=== PATIENT | male | born 1955 | race Caucasian/White ===

== ENCOUNTER 2019-03-09 09:46 | Day surgery (SDC) | payer MEDICARE, OTHER, MEDICAID ==
[~2019-03-09 09:46] MED LIST: BUPIVACAINE HCL 0.5 % INJ/PF 30 ML SDV ONE; CEFAZOLIN SODIUM 2 GM in DEXTROSE 5%-WATER 100 ML IV PRN; DEXAMETHASONE SOD PHOSPHATE INJ 4 MG/1 ML VIAL ONE; FENTANYL CITRATE INJ/PF 100 MCG/2 ML AMPUL ONE; LIDOCAINE 0.5% INJ-PF (5 MG/ML) 50 ML SDV ONE; MIDAZOLAM 2 MG/2 ML INJ ONE; ONDANSETRON HCL INJ/PF 4 MG/2 ML SDV ONE; PROPOFOL INJ 200 MG/20 ML VIAL IV ONE
--- NOTE | 2019-03-09 10:51 | RADIOLOGY REPORT (SQ) ---
EXAM DESCRIPTION: CHEST SINGLE VIEW COMPLETED DATE/TIME: 03/09/2019 10:25 am REASON FOR STUDY: PRE-OP COMPARISON: Chest films 03/21/2015, 12/20/2014 EXAM PARAMETERS: NUMBER OF VIEWS: One view. TECHNIQUE: Single frontal radiographic view of the chest acquired. RADIATION DOSE: NA LIMITATIONS: None. FINDINGS: LUNGS AND PLEURA: No acute infiltrates or pleural effusions. No pneumothorax. MEDIASTINUM AND HILAR STRUCTURES: No masses. Contour normal. HEART AND VASCULAR STRUCTURES: Heart normal in size. Normal vasculature. BONES: No acute findings HARDWARE: Right Shoulder orthopedic prosthesis OTHER: No other significant finding. IMPRESSION: NO ACUTE RADIOGRAPHIC FINDING IN THE CHEST. TECHNICAL DOCUMENTATION: JOB ID: [id number] [employer]- All Rights Reserved Reading location - IP/workstation name: [email or web address]
[2019-03-09 10:58] LABS: ABSOLUTE BASOPHILS # (AUTO) 0.1 10^3/uL (0.0-0.2); ABSOLUTE EOSINOPHILS # (AUTO) 0.1 10^3/uL (0.0-0.6); ABSOLUTE LYMPHOCYTES (AUTO) 1.6 10^3/uL (0.5-4.7); ABSOLUTE MONOCYTES (AUTO) 0.4 10^3/uL (0.1-1.4); ABSOLUTE NEUT (AUTO) 2.2 10^3/uL (1.7-8.2); BASOPHILS % (AUTO) 1.2 % (0-2); EOSINOPHILS % (AUTO) 1.7 % (0-6); HEMATOCRIT 39.1 % (37.9-51.0); HEMOGLOBIN 13.6 g/dL (13.5-17.0); LYMPHOCYTES % (AUTO) 36.7 % (13-45); MEAN CORPUSCULAR HEMOGLOBIN 33.1 pg (27.0-33.4); MEAN CORPUSCULAR HGB CONC 34.6 g/dL (32.0-36.0); MEAN CORPUSCULAR VOLUME 96 fl (80-97); PLATELET COUNT 183 10^3/uL (150-450); RED CELL DISTRIBUTION WIDTH 14.2 % (11.5-14.0); SEGMENTED NEUTROPHILS % (AUTO) 51.4 % (42-78); TOTAL CELLS COUNTED % (AUTO) 100 %; WHITE BLOOD COUNT 4.3 10^3/uL (4.0-10.5)
[2019-03-09 11:20] LABS: ANION GAP 6 (5-19); BLOOD UREA NITROGEN 15 mg/dL (7-20); CALCIUM 9.1 mg/dL (8.4-10.2); CARBON DIOXIDE 31 mmol/L (22-30); CHLORIDE 103 mmol/L (98-107); GLUCOSE 94 mg/dL (75-110); POTASSIUM 4.4 mmol/L (3.6-5.0)
--- NOTE | 2019-03-09 12:12 | RADIOLOGY REPORT (SQ) ---
EXAM DESCRIPTION: CERV SP 3 VIEW OR LESS COMPLETED DATE/TIME: 03/09/2019 11:47 am REASON FOR STUDY: PRE-OP S52.225A NONDISPLACED TRANSVERSE FRACTURE OF SHAFT OF LEFT U M19.232 SECO NDARY OSTEOARTHRITIS, LEFT WRIST COMPARISON: None. EXAM PARAMETERS: NUMBER OF VIEWS: Three views TECHNIQUE: AP, lateral and odontoid radiographic images acquired of the cervical spine. RADIATION DOSE: N/A LIMITATIONS: None. FINDINGS: MINERALIZATION: Normal. SEGMENTATION: Normal. ALIGNMENT: Normal. VERTEBRAE: Maintained height. No fracture or worrisome bone lesion. DISCS: Multilevel disc space narrowing with osteophytes. POSTERIOR ELEMENTS: Pedicles and facets are intact. No posterior arch defects. Facet arthropathy is present. HARDWARE: None in the spine. PARASPINAL SOFT TISSUES: Normal. OTHER: No other significant finding. IMPRESSION: SPONDYLOSIS WITHOUT BONE LESION OR FRACTURE. TECHNICAL DOCUMENTATION: JOB ID: [id number] [employer]- All Rights Reserved Reading location - IP/workstation name: [email or web address]
--- NOTE | 2019-03-09 13:03 | RADIOLOGY REPORT (SQ) ---
EXAM DESCRIPTION: CERV SP 3 VIEW OR LESS COMPLETED DATE/TIME: 03/09/2019 12:51 pm REASON FOR STUDY: R/O [facility] INSTABILITY, FLEXION, EXT ONLY S52.225A NONDISPLACED TRANSV ERSE FRACTURE OF SHAFT OF LEFT U M19.232 SECONDARY OSTEOARTHRITIS, LEFT WRIST COMPARISON: Cervical spine three views earlier today NUMBER OF VIEWS: Lateral flexion lateral extension films TECHNIQUE: Lateral flexion, lateral extension cervical spine radiographic images . LIMITATIONS: None. FINDINGS: On the lateral view, the cervical spine is seen down to the C7-T1 level. There is high-gr michael disc space loss of height and bulky anterior osteophyte formation at C2-3, C3-4, C4-5, C5-6. No instability on flexion/extension imaging. Results called to Carie in ambulatory surgery. IMPRESSION: No instability on flexion/extension views, cervical spine TECHNICAL DOCUMENTATION: JOB ID: [id number] [employer]- All Rights Reserved Reading location - IP/workstation name: [email or web address]
[2019-03-09] MEDS ORDERED: SUCCINYLCHOLINE CHLORIDE INJ 200 MG/10 ML VIAL ONE (14:17)
[2019-03-09] MEDS ORDERED: MORPHINE SULFATE 10 MG/ML INJ IV PRN ×2 (14:54→16:02)
[2019-03-09] MEDS ORDERED: DIPHENHYDRAMINE HCL 50 MG/ML VIAL IV PRN (14:54)
[2019-03-09] MEDS ORDERED: FENTANYL CITRATE INJ/PF 100 MCG/2 ML AMPUL IV PRN ×3 (14:54)
[2019-03-09] MEDS ORDERED: ONDANSETRON HCL INJ/PF 4 MG/2 ML SDV IV PRN ×2 (14:54→16:02)
[2019-03-09] MEDS ORDERED: PROMETHAZINE HCL INJ 25 MG/1 ML VIAL IV PRN ×2 (14:54)
[2019-03-09] MEDS ORDERED: MEPERIDINE HCL/PF INJ 25 MG/1 ML DISP.SYRIN IV PRN (14:54)
[2019-03-09] MEDS: OXYCODONE-ACETAMINOPHEN 5-325 MG TABLET PO PRN ×2 (15:35→17:35)
--- NOTE | 2019-03-09 16:04 | Discharge Summary ---
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 Terry Menendez @ [facility] for [facility] to be seen in 10-14 days or as scheduled [place]: Sabael: Tinnie: Ice and elevate Keep splint clean/dry/intact, do not remove. If your fingers become numb please unwrap the Gregg wrap but leave the splint in place, if the sensation does not return within 30 minutes please return to the emergency department. May begin finger range of motion attempting to make full fist. ORAL NARCOTIC MEDICATION: You have been given a prescription for pain control. This medication is a narcotic. It's best taken with food, as nausea can result if taken on an empty stomach. Don't operate machinery or drive within six hours of taking this medication. Do not combine this medicine with alcohol, or with any medication which can cause sedation (such as cold tablets or sleeping pills) unless you get permission from the physician. Narcotics tend to cause constipation. If possible, drink plenty of fluids and eat a diet high in fiber and fruits. Please be aware that prescription narcotics also have the potential for abuse. People become addicted to these medications because of the general sense of wellbeing that they induce. This feeling along with a significant reduction in tension, anxiety, and aggression provides a stimulating seductive quality to these drugs. Once your pain is under control, we encourage you to discard your unused narcotics. Prescriptions: Hydrocodone/Acetaminophen [[place]way 5-325 mg Tablet] 1 tab PO Q6 PRN #20 tablet PRN Reason: Referrals: TERRY MENENDEZ DO [ACTIVE STAFF] - Discharge Diet: As Tolerated Respiratory Treatments at Home: Deep Breathing/Coughing Discharge Activity: No Lifting Over 10 Pounds, No Lifting/Push/Pulling Report the Following to Your Physician Immediately: Fever over 101 Degrees, Unusual Bleeding, Redness, Swelling, Warmth
--- NOTE | 2019-03-09 16:07 | Operative Report ---
Operative Report DATE OF SURGERY: 03/09/19 PREOPERATIVE DIAGNOSIS: Left ulnar shaft nonunion POSTOPERATIVE DIAGNOSIS: Same OPERATION: Open reduction internal fixation left ulnar shaft nonunion via compressive technique SURGEON: MAYELA MENENDEZ ANESTHESIA: GA COMPLICATIONS: None ESTIMATED BLOOD LOSS: Minimal PROCEDURE: Indication for above procedure: 64-year-old male who sustained an injury to his left wrist x-rays demonstrate ulnar shaft fracture patient was treated conservatively given the nondisplaced nature however after immobilization and patient's failure to comply due to mental status. Radiographs continue to demonstrate nonunion and patient continued to have persistent pain at that point decision was made to proceed with operative intervention which include open reduction internal rotation ulnar shaft nonunion. Procedure In Detail: Patient was seen and evaluated in the preoperative holding area. The left upper extremity was initialized and marked. Patient received 2g of Ancef IV for bacterial prophylaxis. Patient was taken back to the operative room where transferred to the operative table and placed under general anesthesia. Once they were adequately anesthetized a nonsterile tourniquet was placed on the upper extremity. A surgical team debriefing was performed ensuring all instrumentation was available, the surgical procedure was discussed with possible concerns reviewed. The upper extremity was prepped with chlorhexidine and alcohol and draped in a sterile fashion. A timeout was done identifying correct patient, procedure and extremity everyone in attendance agree with this and verbalized no concerns. The extremity was exsanguinated the tourniquet was inflated to 250 mmHg. Longitudinal skin incision was made over the ulnar shaft fracture. Blunt dissection was performed. Dorsal ulnar sensory nerve was identified and retracted. Interval between the FCU and ECU was established to expose the fracture site. Superior periosteal dissection was performed proximally and distally the edges of the fracture site were debrided including intervening hematoma. There was minimal evidence of fracture healing. A curette was placed proximally and distally cleaning the canal. Once adequately debrided fracture edges were then reduced and a 2.3 mm interfragmentary screw was placed providing interfragmentary compression and provisional fixation. Decision was then made to place a 3.5 mm narrow compression plate. First was secured distally with bicortical fixation and a locking screw. Under co mpression technique 2 compression screws were placed proximally providing interfragmentary compression. Fixation was then completed proximally with the appropriate size locking screw. At completion there was no evidence of fracture instability and near anatomic reduction. No evidence of soft tissue impingement. C-arm fluoroscopy was obtained confirming reduction of the fracture and appropriate placement of hardware. Wound was then copiously irrigated with normal saline. ECU/FCU was then reapproximated with 2-0 Vicryl suture. Subcutaneous tissues closed with interrupted 4-0 Monocryl suture skin was closed with running subcuticular 4-0 Monocryl reinforced with Dermabond and Steri-Strips. 20 cc of 0.5% bupivacaine without epinephrine was injected for postoperative pain control. Patient was placed in a sugar tong splint with the forearm in neutral position. Sponge counts, instrument counts, needle counts were correct. Patient was then awoken from anesthesia. Transferred from the operating room table to the operating room stretcher. There was no intraoperative complications patient tolerated procedure well stable to PACU. Postop plan: Patient will follow in the office in 2 weeks at which point we will obtain radiographs. Patient will be placed in a long-arm cast at that time.
[2019-03-09] MEDS ORDERED: ACETAMINOPHEN 1,000 MG/100 ML RTUPB IV ONE (16:39)
[2019-03-09] MEDS ORDERED: KETOROLAC TROMETHAMINE INJ/PF 30 MG/1 ML SDV ONE (16:39)
[2019-03-09] MEDS ORDERED: OXYCODONE-ACETAMINOPHEN 5-325 MG TABLET ONE (17:35)
[2019-03-09 18:50] VITALS: BP 92/61
--- NOTE | 2019-03-09 23:07 | EKG REPORT ---
SEVERITY:- NORMAL ECG - SINUS RHYTHM : Confirmed by: Charissa Bains 09-Mar-2019 23:06:27
--- NOTE | 2019-03-10 08:22 | RADIOLOGY REPORT (SQ) ---
EXAM DESCRIPTION: WRIST LEFT 2 VIEWS; NO CHG FLUORO COMPLETED DATE/TIME: 03/09/2019 8:12 pm REASON FOR STUDY: ORIF LT WRIST S52.225A NONDISPLACED TRANSVERSE FRACTURE OF SHAFT OF LEFT U M19.23 2 SECONDARY OSTEOARTHRITIS, LEFT WRIST COMPARISON: None. FLUOROSCOPY TIME: 21 seconds Spot images saved to PACS. TECHNIQUE: Intra-operative images acquired during surgical procedure to evaluate progress. NUMBER OF IMAGES: 4 LIMITATIONS: None. FINDINGS: Fluoroscopy was provided for intraoperative procedure. Please refer to the operative repo rt further discussion. IMPRESSION: IMAGE(S) OBTAINED DURING PROCEDURE. COMMENT: Quality ID [id number]: Final reports for procedures using fluoroscopy that document radiation exp osure indices, or exposure time and number of fluorographic images (if radiation exposure indices are not available) Please consult full operative report of the attending physician for description of the procedure. TECHNICAL DOCUMENTATION: JOB ID: [id number] [employer]- All Rights Reserved Reading location - IP/workstation name: [email or web address]
--- NOTE | 2019-03-10 08:22 | RADIOLOGY REPORT (SQ) ---
EXAM DESCRIPTION: WRIST LEFT 2 VIEWS; NO CHG FLUORO COMPLETED DATE/TIME: 03/09/2019 8:12 pm REASON FOR STUDY: ORIF LT WRIST S52.225A NONDISPLACED TRANSVERSE FRACTURE OF SHAFT OF LEFT U M19.23 2 SECONDARY OSTEOARTHRITIS, LEFT WRIST COMPARISON: None. FLUOROSCOPY TIME: 21 seconds Spot images saved to PACS. TECHNIQUE: Intra-operative images acquired during surgical procedure to evaluate progress. NUMBER OF IMAGES: 4 LIMITATIONS: None. FINDINGS: Fluoroscopy was provided for intraoperative procedure. Please refer to the operative repo rt further discussion. IMPRESSION: IMAGE(S) OBTAINED DURING PROCEDURE. COMMENT: Quality ID [id number]: Final reports for procedures using fluoroscopy that document radiation exp osure indices, or exposure time and number of fluorographic images (if radiation exposure indices are not available) Please consult full operative report of the attending physician for description of the procedure. TECHNICAL DOCUMENTATION: JOB ID: [id number] [employer]- All Rights Reserved Reading location - IP/workstation name: [email or web address]
== END 2019-03-09 18:45 | disposition home or self-care (01) ==
LOC: OROUT 09:46
PROVIDERS: ATTEND Orthopaedic Surgery
DX: S52.225A Nondisplaced transverse fracture of shaft of left ulna, initial encounter for closed fracture (principal); X58.XXXA Exposure to other specified factors, initial encounter; M19.232 Secondary osteoarthritis, left wrist; E78.00 Pure hypercholesterolemia, unspecified; K21.9 Gastro-esophageal reflux disease without esophagitis; I10 Essential (primary) hypertension; Z79.82 Long term (current) use of aspirin; Z79.899 Other long term (current) drug therapy
CPT/HCPCS: 36415; 85025; 80048; 72040; 71045; 73100; 93005; 93010; 01830; 25400; C1713 ×4; J2250; J3490; J0690; J1100; J3010; J1885; A9270; J0330; J2405; J7060; J2704; J0131

== ENCOUNTER 2020-05-31 08:21 | Inpatient (IN) | payer MEDICARE, MEDICAID ==
[2020-05-31 08:59] LABS: ABSOLUTE BASOPHILS # (AUTO) 0.1 10^3/uL (0.0-0.2); ABSOLUTE EOSINOPHILS # (AUTO) 0.1 10^3/uL (0.0-0.6); ABSOLUTE LYMPHOCYTES (AUTO) 1.3 10^3/uL (0.5-4.7); ABSOLUTE MONOCYTES (AUTO) 0.4 10^3/uL (0.1-1.4); ABSOLUTE NEUT (AUTO) 2.5 10^3/uL (1.7-8.2); BASOPHILS % (AUTO) 1.4 % (0-2); EOSINOPHILS % (AUTO) 2.5 % (0-6); HEMATOCRIT 35.6 % (37.9-51.0); HEMOGLOBIN 12.6 g/dL (13.5-17.0); LYMPHOCYTES % (AUTO) 30.4 % (13-45); MEAN CORPUSCULAR HGB CONC 35.2 g/dL (32.0-36.0); MEAN CORPUSCULAR VOLUME 96 fl (80-97); MONOCYTES % (AUTO) 9.9 % (3-13); PLATELET COUNT 158 10^3/uL (150-450); RED CELL DISTRIBUTION WIDTH 14.2 % (11.5-14.0); SEGMENTED NEUTROPHILS % (AUTO) 55.8 % (42-78); TOTAL CELLS COUNTED % (AUTO) 100 %; WHITE BLOOD COUNT 4.4 10^3/uL (4.0-10.5)
[2020-05-31 09:21] LABS: ALBUMIN 3.3 g/dL (3.5-5.0); ALKALINE PHOSPHATASE 74 U/L (38-126); ANION GAP 6 (5-19); ASPARTATE AMINO TRANSFERASE 29 U/L (17-59); BILIRUBIN,DIRECT 0.2 mg/dL (0.0-0.4); BILIRUBIN,TOTAL 0.7 mg/dL (0.2-1.3); BLOOD UREA NITROGEN 21 mg/dL (7-20); CALCIUM 8.8 mg/dL (8.4-10.2); CARBON DIOXIDE 30 mmol/L (22-30); CHLORIDE 103 mmol/L (98-107); CREATINE KINASE 73 U/L (55-170); GLUCOSE 117 mg/dL (75-110); POTASSIUM 4.5 mmol/L (3.6-5.0); TOTAL PROTEIN 6.1 g/dL (6.3-8.2)
[2020-05-31 09:27] LABS: CREATINE KINASE MB 0.71 ng/mL (<4.55)
[2020-05-31 09:34] LABS: TROPONIN I 0.07 ng/mL
[2020-05-31] MEDS ORDERED: NORMAL SALINE 1000 ML 1,000 ML IV ONE (10:10)
--- NOTE | 2020-05-31 10:16 | ER Document Report ---
ED General - General Chief Complaint: Near Syncope Stated Complaint: POSSIBLE SYNCOPE Time Seen by Provider: 05/31/20 09:52 Primary Care Provider: JOSE TOMLINSON MD [Primary Care Provider] - Follow up as needed TRAVEL OUTSIDE OF THE [place] IN LAST 30 DAYS: No - HPI Notes: Chief complaint: Near syncope History of present illness: 65-year-old mentally retarded male living with sister brought in for evaluation of near syncopal episode. Patient reports she was giving him a haircut in the kitchen this morning when he suddenly seemed to become very dizzy and lose his balance. He was falling out of the chair and she braced him in gently slid against the wall down to the floor. He never completely passed out. He continued to speak to her but told her that he felt very dizzy. She did not observe any focal weakness or any tonic-clonic movem ents. There was no incontinence of bowel or bladder. EMS was called and he had a blood pressure in the 80s and a heart rate in the 40s. They gave 1 dose of atropine IV and also 500 cc of normal saline. His blood pressure stabilized and his symptoms resolved. He was transported the hospital. He states he feels well at this time with no ongoing symptoms. Sister notes that he has recently been having difficulty swallowing and seems to get choked on his foods and intermittently has a rattling cough. She also says that he is taking very small bites of food and that she is talked with his the orthopedic specialty hospital doctor about this and they are planning to obtain an endoscopy on an outpatient basis although this has not yet been done. Currently followed by Dr. Jose Tomlinson. Patient has no known allergies. He has a known chronic sinus bradycardia. Chronic medications include: Sertraline Docusate Famotidine Meloxicam Benzapril Simvastatin Pantoprazole - Related Data Allergies/Adverse Reactions: ibuprofen Adverse Reaction (Intermediate, Verified 03/09/19 10:18) GI upset Home Medications: Sertraline, Docusate, Famotidine, Meloxicam, Benazepril, Simvastatin, Pantaprazole Past Medical History - General Information source: Patient, Relative, [facility] Records - Social History Smoking Status: Never Smoker Frequency of alcohol use: None Drug Abuse: None Family History: Reviewed & Not Pertinent - Past Medical History Cardiac Medical History: Reports: Hx Hypercholesterolemia - meds x 6 years, Hx Hypertension - meds x 6 years, Hx Heart Murmur - no SBE prophylaxis recommended on echo report Denies: Hx Atrial Fibrillation, Hx Congestive Heart Failure, Hx Coronary Artery Disease, Hx Heart Attack, Hx Peripheral Vascular Disease Pulmonary Medical History: Denies: Hx Asthma, Hx Bronchitis, Hx COPD, Hx Pneumonia Neurological Medical History: Denies: Hx Cerebrovascular Accident, Hx Seizures, Hx Parkinson's Disease Endocrine Medical History: Denies: Hx Diabetes Mellitus Type 1, Hx Diabetes Mellitus Type 2 Malignancy Medical History: Denies Hx Leukemia GI Medical History: Reports: Hx Gastroesophageal Reflux Disease - meds x 10 years. Denies: Hx Crohn's Disease, Hx Hiatal Hernia, Hx Irritable Bowel, Hx Liver Failure, Hx Pancreatitis, Hx Ulcer Musculoskeletal Medical History: Reports Hx Arthritis, Denies Hx Fibromyalgia, Denies Hx Multiple Sclerosis, Denies Hx Muscular Dystrophy Psychiatric Medical History: Reports: Hx Depression - meds x 6 years Denies: Hx Bipolar Disorder, Hx Dementia, Hx Post Traumatic Stress Disorder, Hx Schizophrenia Traumatic Medical History: Denies: Hx Fractures Infectious Medical History: Denies: Hx HIV Past Surgical History: Reports: Hx Orthopedic Surgery. Denies: Hx Appendectomy, Hx Bowel Surgery, Hx Cholecystectomy, Hx Colostomy, Hx Coronary Artery Bypass Graft, Hx Gastric Bypass Surgery, Hx Herniorrhaphy, Hx Pacemaker, Hx Tonsillectomy - Immunizations Hx Diphtheria, Pertussis, Tetanus Vaccination: Yes Hx Pneumococcal Vaccination: 07/07/12 Review of Systems - Review of Systems Notes: Constitutional: Negative for fever. HENT: Negative for sore throat. Eyes: Negative for visual changes. Cardiovascular: Negative for chest pain. Respiratory: Negative for shortness of breath. Gastrointestinal: As per HPI. Genitourinary: Negative for dysuria. Musculoskeletal: Negative for back pain. Skin: Negative for rash. Neurological: As per HPI. 10 point ROS negative except as marked above and in HPI. Physical Exam - Vital signs Vitals: Resp Pulse Ox 12 93 05/31/20 08:31 05/31/20 08:31 - Notes Notes: GENERAL: Male patient approximately stated age appearing in no acute distress SKIN: Pale with slightly decreased turgor. No rashes. HEAD: Normocephalic atraumatic. EYES: PERRLA. EOMI. Conjunctivae and sclerae clear. EARS: CANALS AND TMS CLEAR. NOSE: CLEAR. MOUTH: Tacky oral mucosa. Good dentition. No stridor or edema. No drooling. NECK: Supple. No masses or thyromegaly. No adenopathy. Carotids 2+ without bruits. No JVD. BACK: Symmetrical without tenderness. CHEST: Respirations unlabored. Breath sounds clear and symmetrical. HEART: Bradycardic regular rhythm. No murmur gallop or rub. ABDOMEN: Soft nontender without masses, organomegaly or rebound. Bowel sounds normally active. No bruits. GENITALIA: Deferred. EXTREMITIES: Prominent degenerative changes of interphalangeal joints of both h ands. No edema. No calf tenderness. Cap refill less than 1.5 seconds. Dorsalis pedis and posterior tibial pulses 3+ and symmetrical. NEUROLOGICAL: GCS 15. Alert and oriented x3. Normal gait. Fluent speech. Cranial nerves II through XII intact. Sensorimotor and cerebellar normal. Normal tone. PSYCHIATRIC: Flat affect. Course - Re-evaluation Re-evalutation: 05/31/20 13:36 After an extensive work-up in ED it is still not totally clear what caused this man's episode today. May very well be simple vasovagal event which occurred while he was getting his haircut. Cannot exclude possibility of TIA or an atypical seizure. His head CT showed microvascular changes only. His neurologic exam is nonfocal. His labs are essentially unremarkable here except for mildly elevated D-dimer. We did do a CTA of the chest and this was negative for PE. Findings are reviewed with family member. We agreed that he will be placed in observation status by the hospitalist service. Patient was presented to Dr. Hough who will admit - Vital Signs Vital signs: Temp Pulse Resp BP Pulse Ox 97.7 F 64 17 100/66 96 05/31/20 08:40 05/31/20 08:40 05/31/20 09:08 05/31/20 09:08 05/31/20 09:08 - Laboratory Result Diagrams: 05/31/20 08:29 05/31/20 08:29 Laboratory results interpreted by me: 05/31/20 05/31/20 05/31/20 08:29 08:29 08:29 RBC 3.70 L Hgb 12.6 L Hct 35.6 L MCH 34.0 H RDW 14.2 H D-Dimer 1.14 H BUN 21 H Glucose 117 H Total Protein 6.1 L Albumin 3.3 L - Diagnostic Test Radiology reviewed: Image reviewed, Reports reviewed Radiology results interpreted by me: 05/31/20 11:01 Chest X-Ray 05/31/20 10:09 IMPRESSION: No evidence of acute intrathoracic process. Head CT 05/31/20 10:09 IMPRESSION: CHRONIC CHANGES OF ATROPHY AND MICROVASCULAR ISCHEMIA. NO EVIDENCE OF ACUTE INTRACRANIAL PROCESS. EVIDENCE OF ACUTE STROKE: NO. - EKG Interpretation by Me When compared to previous EKG there are: Other Additional EKG results interpreted by me: 05/31/20 10:20 Twelve-lead EKG reviewed by me contemporaneously: 0904 hrs. Indication for study: Near syncope Rhythm: Sinus bradycardia Rate: 59 Intervals: Normal QRS axis: Normal +[address]/T wave changes: None Comparison with prior tracing: Unchanged from prior study 03/19/2019 Interpretation: Sinus bradycardia Discharge - Discharge Clinical Impression: Syncope and collapse Condition: Good Disposition: ADMITTED OBSERVATION Admitting Provider: - Dr. Hough Unit Admitted: Telemetry Referrals: JOSE TOMLINSON MD [Primary Care Provider] - Follow up as needed
--- NOTE | 2020-05-31 10:40 | RADIOLOGY REPORT (SQ) ---
EXAM DESCRIPTION: CHEST SINGLE VIEW IMAGES COMPLETED DATE/TIME: 05/31/2020 10:26 am REASON FOR STUDY: dysphagia COMPARISON: 03/09/2019 EXAM PARAMETERS: NUMBER OF VIEWS: One view. TECHNIQUE: Single frontal radiographic view of the chest acquired. RADIATION DOSE: NA LIMITATIONS: None. FINDINGS: LUNGS AND PLEURA: No opacities, masses or pneumothorax. No pleural effusion. MEDIASTINUM AND HILAR STRUCTURES: No masses. Contour normal. HEART AND VASCULAR STRUCTURES: Heart normal in size. Normal vasculature. BONES: No acute findings. HARDWARE: None in the chest. Partially visualized right shoulder arthroplasty hardware OTHER: Possible small hiatal hernia. IMPRESSION: No evidence of acute intrathoracic process. TECHNICAL DOCUMENTATION: JOB ID: [id number] 2010 [employer]- All Rights Reserved Reading location - IP/workstation name: [email or web address]
--- NOTE | 2020-05-31 10:42 | RADIOLOGY REPORT (SQ) ---
EXAM DESCRIPTION: CT HEAD WITHOUT IMAGES COMPLETED DATE/TIME: 05/31/2020 10:26 am REASON FOR STUDY: syncope COMPARISON: None. TECHNIQUE: Axial images acquired through the brain without intravenous contrast. Images reviewed wi th bone, brain and subdural windows. Additional sagittal and coronal reconstructions were generated. Images stored on PACS. All CT scanners at this facility use dose modulation, iterative reconstruction, and/or weight based d osing when appropriate to reduce radiation dose to as low as reasonably achievable (ALARA). [facility]: Dose Right [facility]: CareDose [facility]: Dose Right [facility]: Teradose 4D [facility]: TaoTaoSou RADIATION DOSE: CT Rad equipment meets quality standard of care and radiation dose reduction techniq ues were employed. CTDIvol: 53.2 mGy. DLP: 1097 mGy-cm.mGy. LIMITATIONS: None. FINDINGS: VENTRICLES: Prominent. CEREBRUM: No masses. No hemorrhage. No midline shift. Areas of low density in the white matter mos t likely due to chronic micro-vascular ischemic change. No evidence for acute infarction. CEREBELLUM: No masses. No hemorrhage. No alteration of density. No evidence for acute infarction. EXTRAAXIAL SPACES: Age-related involutional change. No fluid collections. No masses. ORBITS AND GLOBE: No intra- or extraconal masses. Normal contour of globe without masses. CALVARIUM: No fracture. PARANASAL SINUSES: Minimal mucosal thickening within the ethmoid air cells and inferior left maxillar y sinus. Remaining sinuses are clear. SOFT TISSUES: No mass or hematoma. OTHER: No other significant finding. IMPRESSION: CHRONIC CHANGES OF ATROPHY AND MICROVASCULAR ISCHEMIA. NO EVIDENCE OF ACUTE INTRACRANIA L PROCESS. EVIDENCE OF ACUTE STROKE: NO. TECHNICAL DOCUMENTATION: JOB ID: [id number] Quality ID # [id number]: Final reports with documentation of one or more dose reduction techniques (e.g., Au tomated exposure control, adjustment of the mA and/or kV according to patient size, use of iterative reconstruction technique) 2010 [employer]- All Rights Reserved Reading location - IP/workstation name: [email or web address]
--- NOTE | 2020-05-31 12:28 | RADIOLOGY REPORT (SQ) ---
EXAM DESCRIPTION: CTA CHEST IMAGES COMPLETED DATE/TIME: 05/31/2020 12:16 pm REASON FOR STUDY: syncope, elevated d-dimer COMPARISON: Same day radiograph TECHNIQUE: CT scan of the chest performed using helical scanning technique with dynamic intravenous contrast injection. Images reviewed with lung, soft tissue and bone windows. Reconstructed coronal and sagittal MPR images reviewed. Additional 3 dimensional post-processing performed to develop Maximal Intensity Projection images (GA P). All images stored on PACS. All CT scanners at this facility use dose modulation, iterative reconstruction, and/or weight based d osing when appropriate to reduce radiation dose to as low as reasonably achievable (ALARA). [facility]: Dose Right [facility]: CareDose [facility]: Dose Right [facility]: Teradose 4D [facility]: Neuralitic Systems CONTRAST TYPE AND DOSE: contrast/concentration: Isovue mmol/ml; Total Contrast Delivered: 112.0 ml; Total Saline Delivered: 120.7 ml Contrast bolus adequate for pulmonary arteries and aorta. RENAL FUNCTION: Creatinine 1.12 RADIATION DOSE: CT Rad equipment meets quality standard of care and radiation dose reduction techniq ues were employed. CTDIvol: 14.3 - 33.1 mGy. DLP: 582 mGy-cm. . LIMITATIONS: None. FINDINGS: LUNGS AND PLEURA: Minimal dependent hypoventilatory change. No focal consolidation, pleur al effusion or pneumothorax. No discrete suspicious nodules or masses. AORTA AND GREAT VESSELS: No aneurysm. No dissection. Visualize great vessels are widely patent. HEART: Normal heart size. No pericardial effusion. No significant calcified coronary atherosclerosis . PULMONARY ARTERIES: No emboli visualized in the main pulmonary arteries or the segmental branches. HILAR AND MEDIASTINAL STRUCTURES: No identified masses or abnormal nodes. HARDWARE: Partially visualize right shoulder arthroplasty. UPPER ABDOMEN: No significant findings. Limited exam. THYROID AND OTHER SOFT TISSUES: No masses. No adenopathy. BONES: No acute bony abnormality. No suspicious osseous lesions. Mild spondylosis greatest at T9-10 . 3D MIPS: Confirm above findings. OTHER: No other significant finding. IMPRESSION: No evidence of pulmonary embolus or other acute intrathoracic findings. COMMENT: Quality ID # [id number]: Final reports with documentation of one or more dose reduction techniques (e.g., Automated exposure control, adjustment of the mA and/or kV according to patient size, use of iterative reconstruction technique) TECHNICAL DOCUMENTATION: JOB ID: [id number] [employer]- All Rights Reserved Reading location - IP/workstation name: [email or web address]
--- NOTE | 2020-05-31 12:33 | EKG REPORT ---
SEVERITY:- NORMAL ECG - SINUS RHYTHM : Confirmed by: Donnell Gonzalez MD 31-May-2020 12:33:00
[2020-05-31 13:12] LABS: APPEARANCE,URINE CLEAR; BILIRUBIN,URINE NEGATIVE (NEGATIVE); COLOR,URINE YELLOW; GLUCOSE, URINE NEGATIVE (NEGATIVE); KETONES,URINE NEGATIVE (NEGATIVE); LEUKOCYTE ESTERASE,URINE NEGATIVE (NEGATIVE); NITRITE,URINE NEGATIVE (NEGATIVE); PROTEIN,URINE NEGATIVE (NEGATIVE); URINE SPECIFIC GRAVITY 1.014; UROBILINOGEN,URINE NEGATIVE mg/dL (<2.0)
[2020-05-31] MEDS ORDERED: NORMAL SALINE 1000 ML 1,000 ML IV PRN (14:47)
[2020-05-31] MEDS ORDERED: ONDANSETRON 4 MG TAB.RAPDIS PO PRN (14:47)
[2020-05-31] MEDS ORDERED: ACETAMINOPHEN 325 MG TABLET PO PRN (14:47)
[2020-05-31 15:32] LABS: CHOLESTEROL 117.49 mg/dL (0-200); TRIGLYCERIDES 162 mg/dL (<150)
[2020-05-31 15:43] LABS: DIRECT LDL 53 mg/dL (<100)
[2020-05-31 15:48] LABS: VLDL CHOLESTEROL 32.4 mg/dL (10-31)
--- NOTE | 2020-05-31 17:02 | PDOC H&P ---
History of Present Illness Admission Date/PCP: 05/31/20 15:29 JOSE TOMLINSON MD Patient complains of: Syncope History of Present Illness: GUILLERMO COBOS III is a 65 year old male who has a history of Down syndrome, valvular heart disease follows up with Dr. Myers. He also has history of hypertension and recently he has been hypotensive and his blood pressure medications were modified by his primary care physician. Patient lives with his sister who is his guardian. He only speaks few words basically yes or no which is his baseline. Apparently earlier today his sister was cutting his hair while he was standing up. He is then suddenly lost his balance and backed his back to the wall and his legs started trembling and he slowly slid down to the floor. His sister said he was acting like he was spitting out his dentures. His eyes were rolling and she was not sure if he actually lost consciousness. No incontinence. This state lasted for less than 5 minutes. Patient is bradycardic in the 40s which his sister says is his baseline. He was also hypotensive on admission which his sister also says is not far from his baseline. Although he is on benazepril at home. Currently he is asymptomatic and back to his baseline. Past Medical History Cardiac Medical History: Reports: Hyperlipidema - meds x 6 years, Hypertension - meds x 6 years, Heart Murmur - no SBE prophylaxis recommended on echo report GI Medical History: Reports: Gastroesophageal Reflux Disease - meds x 10 years Musculoskeltal Medical History: Reports: Arthritis Psychiatric Medical History: Reports: Depression - meds x 6 years Hematology: Reports: Anemia - currently on iron daily Past Surgical History Past Surgical History: Reports: Orthopedic Surgery Social History Smoking Status: Never Smoker Hx Recreational Drug Use: No Hx Prescription Drug Abuse: No Family History Family History: Reviewed & Not Pertinent Parental Family History Reviewed: Yes Children Family History Reviewed: Yes Sibling(s) Family History Reviewed.: Yes Medication/Allergy Home Medications: Sertraline HCl [Zoloft 50 mg Tablet] 50 mg PO DAILY 03/15/15 Simvastatin [Zocor 20 mg Tablet] 20 mg PO QPM 03/15/15 Benazepril HCl [Lotensin 20 mg Tablet] 20 mg PO DAILY 05/31/20 Docusate Sodium [Colace 100 mg Capsule] 100 mg PO BID 05/31/20 Famotidine [Pepcid 20 mg Tablet] 20 mg PO BID 05/31/20 Meloxicam [Mobic] 15 mg PO DAILY 05/31/20 Pantoprazole Sodium [Protonix [address] Tablet] 40 mg PO Q6AM 05/31/20 Allergies/Adverse Reactions: ibuprofen Adverse Reaction (Intermediate, Verified 03/09/19 10:18) GI upset Review of Systems ROS unobtainable: Due to mental status Physical Exam Vital Signs: Temp Pulse Resp BP Pulse Ox 97.7 F 64 17 100/66 96 05/31/20 08:40 05/31/20 08:40 05/31/20 09:08 05/31/20 09:08 05/31/20 09:08 Intake & Output 05/30/20 05/31/20 06/01/20 06:59 06:59 06:59 Intake Total 1000 Balance 1000 General appearance: PRESENT: no acute distress, cooperative Head exam: PRESENT: atraumatic, normocephalic Eye exam: PRESENT: EOMI Ear exam: ABSENT: bleeding, drainage Mouth exam: PRESENT: moist, neck supple Throat exam: ABSENT: post pharyngeal erythema, tonsillar erythema Neck exam: ABSENT: meningismus, thyromegaly Respiratory exam: PRESENT: clear to auscultation chay. ABSENT: accessory muscle use Cardiovascular exam: PRESENT: bradycardia, +S1, +S2 Pulses: PRESENT: normal carotid pulses, normal radial pulses GI/Abdominal exam: PRESENT: normal bowel sounds, soft. ABSENT: distended, tenderness Extremities exam: ABSENT: joint swelling, pedal edema Musculoskeletal exam: PRESENT: normal inspection. ABSENT: deformity, tenderness Neurological exam: PRESENT: alert, awake, CN II-XII grossly intact Psychiatric exam: PRESENT: normal mood Results Laboratory Results: 05/31/20 08:29 05/31/20 08:29 05/31/20 05/31/20 05/31/20 08:29 08:29 08:29 WBC 4.4 RBC 3.70 L Hgb 12.6 L Hct 35.6 L MCV 96 MCH 34.0 H MCHC 35.2 RDW 14.2 H Plt Count 158 Seg Neutrophils % 55.8 Sodium 139.1 Potassium 4.5 Chloride 103 Carbon Dioxide 30 Anion Gap 6 BUN 21 H Creatinine 1.12 Est GFR ( Amer) > 60 Glucose 117 H Calcium 8.8 Total Bilirubin 0.7 AST 29 Alkaline Phosphatase 74 Total Protein 6.1 L Albumin 3.3 L Triglycerides 162 H Cholesterol 117.49 LDL Cholesterol Direct 53 VLDL Cholesterol 32.4 H HDL Cholesterol 32 L Urine Color Urine Appearance Urine pH Ur Specific [place] Urine Protein Urine Glucose (UA) Urine Ketones Urine Blood Urine Nitrite Ur Leukocyte Esterase Urine WBC (Auto) Urine RBC (Auto) 05/31/20 12:50 WBC RBC Hgb Hct MCV MCH MCHC RDW Plt Count Seg Neutrophils % Sodium Potassium Chloride Carbon Dioxide Anion Gap BUN Creatinine Est GFR ( Amer) Glucose Calcium Total Bilirubin AST Alkaline Phosphatase Total Protein Albumin Triglycerides Cholesterol LDL Cholesterol Direct VLDL Cholesterol HDL Cholesterol Urine Color YELLOW Urine Appearance CLEAR Urine pH 8.0 Ur Specific [place] 1.014 Urine Protein NEGATIVE Urine Glucose (UA) NEGATIVE Urine Ketones NEGATIVE Urine Blood NEGATIVE Urine Nitrite NEGATIVE Ur Leukocyte Esterase NEGATIVE Urine WBC (Auto) 1 Urine RBC (Auto) 0 05/31/20 05/31/20 05/31/20 08:29 08:29 11:34 Creatine Kinase 73 CK-MB (CK-2) 0.71 Troponin I 0.070 < 0.012 Impressions: Chest X-Ray 05/31/20 10:09 IMPRESSION: No evidence of acute intrathoracic process. Head CT 05/31/20 10:09 IMPRESSION: CHRONIC CHANGES OF ATROPHY AND MICROVASCULAR ISCHEMIA. NO EVIDENCE OF ACUTE INTRACRANIAL PROCESS. EVIDENCE OF ACUTE STROKE: NO. Chest/Abdomen CTA 05/31/20 11:03 IMPRESSION: No evidence of pulmonary embolus or other acute intrathoracic findings. Assessment and Plan - Diagnosis (1) Syncope and collapse Is this a current diagnosis for this admission?: Yes Plan: Most likely neurocardiogenic in origin. Patient has sinus bradycardia at baseline. He is known to be hypotensive as reported by his sister. Interesting ly he is on benazepril outpatient. We will stop that. We will check echocardiogram. We will admit him to telemetry unit. We will try to consult his head of ethics and compliance Dr. Myers if he is available. (2) Bradycardia Is this a current diagnosis for this admission?: Yes Plan: Patient is currently sinus tachycardia. He is asymptomatic. Continue to monitor on telemetry. Check TSH. Check echocardiogram. (3) Hypotension Is this a current diagnosis for this admission?: Yes Plan: Patient is on benazepril which we will hold. Continue to monitor his blood pressure. Currently improved. (4) Dyslipidemia Is this a current diagnosis for this admission?: Yes Plan: Continue simvastatin (5) GERD (gastroesophageal reflux disease) Is this a current diagnosis for this admission?: Yes Plan: Continue Protonix (6) Depression Is this a current diagnosis for this admission?: Yes Plan: Continue Zoloft (7) Valvular heart disease Is this a current diagnosis for this admission?: Yes Plan: Follows with Dr. Myers outpatient. Will check echocardiogram. - Time Anticipated Discharge Disposition: Home, Self Care Anticipated Discharge Timeframe: within 72 hours
--- NOTE | 2020-05-31 17:07 | XCELERA REPORT ---
[address] [address] Transthoracic Echocardiogram Report Name: GUILLERMO COBOS III Age: 65 yrs Gender: Male : 1955 Patient Status: Inpatient Patient Location: [place] [address]^A Study Date: 05/31/2020 03:28 PM History: Syncope Height: 64 in Weight: 135 lb BSA: 1.7 m2 Procedure: A complete two-dimensional transthoracic echocardiogram was performed (2D, M-mode, spectral and color flow Doppler). The study was technically difficult with many images being suboptimal in quality. Reason For Study: syncope Ordering Physician: TALHA VELASQUEZ Performed By: Mary Jo Byrd Interpretation Summary Left ventricular systolic function is normal. The Ejection Fraction estimate is 55-60% The right ventricle is normal in size and function. There is a trace amount of mitral regurgitation There is no aortic valve stenosis There is a trace amount of aortic regurgitation There is a mild amount of tricuspid regurgitation There is mild pulmonary hypertension by echo There is no pericardial effusion. MMode/2D Measurements & Calculations RVDd: 2.3 cm LVIDd: 4.0 cm FS: 32.0 % Ao root diam: 3.1 cm IVSd: 0.91 cm LVIDs: 2.7 cm EDV(Teich): Ao root area: 68.0 ml LVPWd: 0.96 cm 7.6 cm2 ESV(Teich): 26.7 ml EF(Teich): 60.7 % EDV(MOD-sp4): SV(MOD-sp4): 92.3 ml 63.1 ml ESV(MOD-sp4): 29.2 ml EF(MOD-sp4): 68.4 % Doppler Measurements & Calculations MV E max [place]: MV dec slope: Ao V2 max: AI max [place]: 93.2 cm/sec 125.4 cm/sec 392.9 cm/sec MV A max [place]: 373.6 cm/sec2 Ao max P.3 mmHgAI max P.8 mmHg 83.3 cm/sec MV dec time: AI dec slope: MV E/A: 1.1 0.25 sec 148.5 cm/sec2 AI P1/2t: 774.6 msec LV V1 max PG: PA V2 max: PI end-d [place]: TR max [place]: 1.9 mmHg 89.7 cm/sec 120.6 cm/sec 276.4 cm/sec LV V1 max: PA max P.2 mmHg TR max P.6 mmHg 69.2 cm/sec Left Ventricle The left ventricle is normal in size. There is mild concentric left ventricular hypertrophy. Left ventricular systolic function is normal. The Ejection Fraction estimate is 55-60%. Doppler measurements suggest pseudonormalized left ventricular relaxation, which is associated with grade II/IV or mild to moderate diastolic dysfunction. No regional wall motion abnormalities noted. Right Ventricle The right ventricle is normal in size and function. Atria The right atrium is mildly dilated. The left atrial size is normal. The interatrial septum is intact with no evidence for an atrial septal defect. There is no Doppler evidence for an interatrial shunt. Mitral Valve The mitral valve is grossly normal. There is no evidence of mitral valve prolapse. There is no mitral valve stenosis. There is a trace amount of mitral regurgitation. Aortic Valve The aortic valve is trileaflet. The aortic valve opens well. The aortic valve is normal in structure and function. There is no aortic valve stenosis. There is a trace amount of aortic regurgitation. Tricuspid Valve The tricuspid valve is normal in structure and function. There is no tricuspid stenosis. There is a mild amount of tricuspid regurgitation. Right ventricular systolic pressure is estimated to be elevated at 30-40mmHg. There is mild pulmonary hypertension by echo. Pulmonic Valve The pulmonic valve is not well visualized. There is no pulmonic valvular stenosis. There is a trace amount of pulmonic regurgitation. Great Vessels The aortic root is normal size. The inferior vena cava appeared normal and decreased < 50% with respiration (RAP 10-15 mmHg). Effusions There is no pericardial effusion. : TALHA VELASQUEZ Anil
[2020-05-31] MEDS: DOCUSATE SODIUM 100 MG CAPSULE PO SCH (17:45)
[2020-05-31] MEDS: SIMVASTATIN 10 MG TABLET PO SCH (17:45)
[2020-05-31] MEDS ORDERED: SIMVASTATIN 20 MG PO SCH (18:00)
--- NOTE | 2020-05-31 20:05 | PDOC CONSULTATION ---
Consultation-Blank Consultation: CARDIOLOGY CONSULTATION by Dr. Oksana Myers on 05/31/2020. Patient seen at 6:30 PM on 05/31/2020. 60 minutes spent as patient more than 50% of time spent in direct patient care. CONSULT REQUESTING PHYSICIAN: Dr. Alvarez, [facility]. REASON FOR CONSULTATION: Syncope. HISTORY OF present ILLNESS: Patient with Down syndrome and mental retardation and is unable to give a good history. History obtained on the telephone from the patient's sister who is the primary caregiver chair for the patient. Patient is a 65-year-old male with known history of Down syndrome, history of hypertension, and mild aortic regurgitation by echocardiographic as per the sister she was cutting his hair while standing and after a few minutes the patient complained of feeling weak and slid to this level of to the wall and down the floor without injury she saw his eyes rolling. Subsequently she sat him up on the toilet commode at which time she noticed the patient to be having convulsions. The patient after that was dazed and confused for a few minutes. There is no history of seizure activity in the past. The patient's sister states that the patient did not really lose consciousness. Of late his blood pressure has been low and his blood pressure medications have been adjusted by his primary care physician. The patient was noted to be bradycardic and also mildly hypotensive when he came to the emergency room. There is no fever chills or rigors. No symptoms suggestive of COVID-19 infection. 1 time in the emergency room his blood pressure was 96 systolic. The patient as per the sister has not been eating or drinking adequately the past few days. He was given IV fluids and subsequently his blood pressure has been stable. The patient has no history of coronary artery disease. No prior history of syncope. No history of seizure disorder. No history of congestive heart failure. No history of diabetes mellitus asthma or COPD. No history of sleep apnea. No history of chronic kidney disease. History of Present Illness Admission Date/PCP: 05/31/20 15:29 JOSE TOMLINSON MD Patient complains of: Syncope History of Present Illness: GUILLERMO COBOS III is a 65 year old male who has a history of Down syndrome, valvular heart disease follows up with Dr. Myers. He also has history of hypertension and recently he has been hypotensive and his blood pressure medications were modified by his primary care physician. Patient lives with his sister who is his guardian. He only speaks few words basically yes or no which is his baseline. Apparently earlier today his sister was cutting his hair while he was standing up. He is then suddenly lost his balance and backed his back to the wall and his legs started trembling and he slowly slid down to the floor. His sister said he was acting like he was spitting out his dentures. His eyes were rolling and she was not sure if he actually lost consciousness. No incontinence. This state lasted for less than 5 minutes. Patient is bradycardic in the 40s which his sister says is his baseline. He was also hypotensive on admission which his sister also says is not far from his baseline. Although he is on benazepril at home. Currently he is asymptomatic and back to his baseline. Past Medical History Cardiac Medical History: Reports: Hyperlipidema - meds x 6 years, Hypertension - meds x 6 years, Heart Murmur - no SBE prophylaxis recommended on echo report GI Medical History: Reports: Gastroesophageal Reflux Disease - meds x 10 years Musculoskeltal Medical History: Reports: Arthritis Psychiatric Medical History: Reports: Depression - meds x 6 years Hematology: Reports: Anemia - currently on iron daily Past Surgical History Past Surgical History: Reports: Orthopedic Surgery Social History Smoking Status: Never Smoker Hx Recreational Drug Use: No Hx Prescription Drug Abuse: No Family History Family History: Reviewed & Not Pertinent Parental Family History Reviewed: Yes Children Family History Reviewed: Yes Sibling(s) Family History Reviewed.: Yes Medication/Allergy Home Medications: Sertraline HCl [Zoloft 50 mg Tablet] 50 mg PO DAILY 03/15/15 Simvastatin [Zocor 20 mg Tablet] 20 mg PO QPM 03/15/15 Benazepril HCl [Lotensin 20 mg Tablet] 20 mg PO DAILY 05/31/20 Docusate Sodium [Colace 100 mg Capsule] 100 mg PO BID 05/31/20 Famotidine [Pepcid 20 mg Tablet] 20 mg PO BID 05/31/20 Meloxicam [Mobic] 15 mg PO DAILY 05/31/20 Pantoprazole Sodium [Protonix [address] Tablet] 40 mg PO Q6AM 05/31/20 Allergies/Adverse Reactions: ibuprofen Adverse Reaction (Intermediate, Verified 03/09/19 10:18) GI upset RESUSCITATION, STATUS: Patient is a full code is sister is a surrogate healthcare decision maker. Current Medications Generic Name Dose Route Start Last Admin Trade Name Freq PRN Reason Stop Dose Admin Acetaminophen 650 mg 05/31/20 14:47 Acetaminophen 325 Mg Tablet PO 06/30/20 14:46 Q4HP PRN FOR PAIN OR TEMP Docusate Sodium 100 mg 05/31/20 18:00 05/31/20 17:45 Docusate Sodium 100 Mg Capsule PO 06/30/20 17:59 100 mg BID KIRSTIN Administration Sodium Chloride 1,000 mls @ 100 mls/hr 05/31/20 14:47 Nacl 0.9% 1000 Ml Iv Soln IV 06/30/20 14:46 CONTINUOUS PRN THIS MED IS NOT "PRN" Meloxicam 15 mg 06/01/20 10:00 Meloxicam 15 Mg Tablet PO 07/01/20 09:59 DAILY KIRSTIN Ondansetron HCl 4 mg 05/31/20 14:47 Ondansetron 4 Mg Tab.Rapdis PO 06/30/20 14:46 Q8HP PRN FOR NAUSEA/VOMITING Pantoprazole Sodium 40 mg 06/01/20 06:00 Pantoprazole Sodium 40 Mg Tablet.Dr PO 07/01/20 05:59 Q6AM KIRSTIN Sertraline HCl 50 mg 06/01/20 10:00 Sertraline Hcl 50 Mg Tablet PO 07/01/20 09:59 DAILY KIRSTIN Simvastatin 20 mg 05/31/20 18:00 05/31/20 17:45 Simvastatin 10 Mg Tablet PO 06/30/20 17:59 20 mg QPM KIRSTIN Administration Sodium Chloride 2.5 ml 05/31/20 22:00 Normal Saline Flush 2.5 Ml Disp.Syrin IV 06/30/20 21:59 Q8 KIRSTIN Discontinued Medications Generic Name Dose Route Start Last Admin Trade Name Freq PRN Reason Stop Dose Admin Sodium Chloride 1,000 mls @ 0 mls/hr 05/31/20 10:10 05/31/20 11:30 Nacl 0.9% 1000 Ml Iv Soln IV 05/31/20 10:11 Infused BOLUS ONE Infusion Wide Open Review of Systems ROS unobtainable: Due to mental status PHYSICAL EXAMINATION: The patient is well-built and appears to be well- nourished. He has features of Down syndrome. He is in no acute distress. Selected Entries 05/31/20 19:50 Temperature 98.0 F Temperature Oral Source Pulse Rate 53 L Respiratory 18 Rate Blood Pressure 123/60 Blood Pressure 81 Mean O2 Sat by Pulse 99 Oximetry Oxygen Delivery Room Air Method HEAD: Is atraumatic normocephalic. EYES: Pupils are equal round regular reactive to light accommodation. Extraocular movements are normal. There is no conjunctival pallor. There is no scleral icterus. EARS: Tympanic membranes are intact. NOSE: There is no deviated nasal septum. There is no inflammation of the nasal mucous membrane. MOUTH: Mucous membranes of mouth are mildly dry. Tongue is slightly dry. There is no ulcers. There is no bleeding from the gums. THROAT: There is no redness of the oropharynx. There is no exudates. SKIN: There is no skin lesions. There is no skin rashes. There is no petechia or ecchymosis. NECK: Supple. There is no JVD. Carotids are equal there is no bruit. There is no lymphadenopathy. There is no goiter. There is no accessory muscle respiration use. Trachea central. LUNGS: Clear to auscultation percussion without any rhonchi rales wheezing. HEART: S1-S2 is heard there is no S3 gallop. There is no S4 gallop. There is systolic murmur left sternal border and the apex without radiation. There is questionable soft mid diastolic murmur of aortic regurgitation. There is no peripheral signs of aortic regurgitation. There is no rub. ABDOMEN: Soft. Nontender there is no paraspinal megaly. Bowel sounds are well heard. [employer]: Patient is conscious awake he appears to be mentally retarded. There with no focal deficit. PSYCHIATRIC: The patient does not appear to be agitated or anxious. Labs- Entire Visit 05/31/20 05/31/20 05/31/20 08:29 08:29 08:29 WBC 4.4 RBC 3.70 L Hgb 12.6 L Hct 35.6 L MCV 96 MCH 34.0 H MCHC 35.2 RDW 14.2 H Plt Count 158 Lymph % (Auto) 30.4 [place] % (Auto) 9.9 Eos % (Auto) 2.5 Baso % (Auto) 1.4 Absolute Neuts (auto) 2.5 Absolute Lymphs (auto) 1.3 Absolute Monos (auto) 0.4 Absolute Eos (auto) 0.1 Absolute Basos (auto) 0.1 Seg Neutrophils % 55.8 D-Dimer Sodium 139.1 Potassium 4.5 Chloride 103 Carbon Dioxide 30 Anion Gap 6 BUN 21 H Creatinine 1.12 Est GFR ( Amer) > 60 Est GFR (MDRD) Non-Af > 60 Glucose 117 H Hemoglobin A1c % Calcium 8.8 Total Bilirubin 0.7 Direct Bilirubin 0.2 Neonat Total Bilirubin Not Reportable Neonat Direct Bilirubin Not Reportable Neonat Indirect Bili Not Reportable AST 29 ALT 22 Alkaline Phosphatase 74 Creatine Kinase 73 CK-MB (CK-2) 0.71 Troponin I 0.070 Total Protein 6.1 L Albumin 3.3 L Triglycerides Cholesterol LDL Cholesterol Direct VLDL Cholesterol HDL Cholesterol Urine Color Urine Appearance Urine pH Ur Specific [place] Urine Protein Urine Glucose (UA) Urine Ketones Urine Blood Urine Nitrite Urine Bilirubin Urine Urobilinogen Ur Leukocyte Esterase Urine WBC (Auto) Urine RBC (Auto) Urine Ascorbic Acid 05/31/20 05/31/20 05/31/20 08:29 08:29 08:29 WBC RBC Hgb Hct MCV MCH MCHC RDW Plt Count Lymph % (Auto) [place] % (Auto) Eos % (Auto) Baso % (Auto) Absolute Neuts (auto) Absolute Lymphs (auto) Absolute Monos (auto) Absolute Eos (auto) Absolute Basos (auto) Seg Neutrophils % D-Dimer 1.14 H Sodium Potassium Chloride Carbon Dioxide Anion Gap BUN Creatinine Est GFR ( Amer) Est GFR (MDRD) Non-Af Glucose Hemoglobin A1c % 5.2 Calcium Total Bilirubin Direct Bilirubin Neonat Total Bilirubin Neonat Direct Bilirubin Neonat Indirect Bili AST ALT Alkaline Phosphatase Creatine Kinase CK-MB (CK-2) Troponin I Total Protein Albumin Triglycerides 162 H Cholesterol 117.49 LDL Cholesterol Direct 53 VLDL Cholesterol 32.4 H HDL Cholesterol 32 L Urine Color Urine Appearance Urine pH Ur Specific [place] Urine Protein Urine Glucose (UA) Urine Ketones Urine Blood Urine Nitrite Urine Bilirubin Urine Urobilinogen Ur Leukocyte Esterase Urine WBC (Auto) Urine RBC (Auto) Urine Ascorbic Acid 05/31/20 05/31/20 05/31/20 11:34 12:50 18:06 WBC RBC Hgb Hct MCV MCH MCHC RDW Plt Count Lymph % (Auto) [place] % (Auto) Eos % (Auto) Baso % (Auto) Absolute Neuts (auto) Absolute Lymphs (auto) Absolute Monos (auto) Absolute Eos (auto) Absolute Basos (auto) Seg Neutrophils % D-Dimer Sodium Potassium Chloride Carbon Dioxide Anion Gap BUN Creatinine Est GFR ( Amer) Est GFR (MDRD) Non-Af Glucose Hemoglobin A1c % Calcium Total Bilirubin Direct Bilirubin Neonat Total Bilirubin Neonat Direct Bilirubin Neonat Indirect Bili AST ALT Alkaline Phosphatase Creatine Kinase CK-MB (CK-2) Troponin I < 0.012 < 0.012 Total Protein Albumin Triglycerides Cholesterol LDL Cholesterol Direct VLDL Cholesterol HDL Cholesterol Urine Color YELLOW Urine Appearance CLEAR Urine pH 8.0 Ur Specific [place] 1.014 Urine Protein NEGATIVE Urine Glucose (UA) NEGATIVE Urine Ketones NEGATIVE Urine Blood NEGATIVE Urine Nitrite NEGATIVE Urine Bilirubin NEGATIVE Urine Urobilinogen NEGATIVE Ur Leukocyte Esterase NEGATIVE Urine WBC (Auto) 1 Urine RBC (Auto) 0 Urine Ascorbic Acid NEGATIVE Chest X-Ray 05/31/20 10:09 IMPRESSION: No evidence of acute intrathoracic process. Head CT 05/31/20 10:09 IMPRESSION: CHRONIC CHANGES OF ATROPHY AND MICROVASCULAR ISCHEMIA. NO EVIDENCE OF ACUTE INTRACRANIAL PROCESS. EVIDENCE OF ACUTE STROKE: NO. Chest/Abdomen CTA 05/31/20 11:03 IMPRESSION: No evidence of pulmonary embolus or other acute intrathoracic findings. EKG: Sinus bradycardia. Within normal limits. EKG has been interpreted by me. ECHOCARDIOGRAM: Normal left wrist systolic function with no wall motion abnormality. There is no aortic stenosis. Mild aortic regurgitation. There is mild tricuspid regurgitation with mild pulmonary hypertension. Echo interpreted by me. IMPRESSION/RECOMMENDATION: 1. Near syncopal episode cardiogenic versus neurogenic. The question is whether this is secondary to arrhythmia since the patient is bradycardic versus secondary to postural hypotension secondary to antihypertensive needs to be certain. The other differential diagnosis is neurogenic cause such as seizure disorder. Would recommend an neurological work-up. Also would recommend that the patient have a event monitor as an outpatient. Agree with holding his blood pressure medication for now. And possibly restarting at a smaller dose. 2. Hypertension: At present blood pressure stable. Would recommend holding the blood pressure medication and restarting at a smaller dose. 3. Mild aortic regurgitation which is clinically not significant. Also no significant pulmonary hypertension to account for the patient's symptomatology. 4. Down syndrome. 5. Mental retardation. Medications reviewed. Medical regimen management plan discussed with attending. On the case. Also discussed with the patient's sister all of the above recommendations. Medical decision making is of high complexity. 60 minutes spent as patient more than 50% of time spent direct patient care. I have discussed the EKG, the echocardiographic findings and the lab test with the patient's sister. Will follow.
[2020-06-01] MEDS: PANTOPRAZOLE SODIUM 40 MG TABLET.DR PO SCH (05:18)
[2020-06-01 07:02] LABS: HEMATOCRIT 36.7 % (37.9-51.0); HEMOGLOBIN 12.9 g/dL (13.5-17.0); MEAN CORPUSCULAR HEMOGLOBIN 33.8 pg (27.0-33.4); MEAN CORPUSCULAR HGB CONC 35.2 g/dL (32.0-36.0); MEAN CORPUSCULAR VOLUME 96 fl (80-97); PLATELET COUNT 152 10^3/uL (150-450); RED BLOOD COUNT 3.82 10^6/uL (4.35-5.55); RED CELL DISTRIBUTION WIDTH 14.2 % (11.5-14.0); WHITE BLOOD COUNT 4.9 10^3/uL (4.0-10.5)
[2020-06-01 07:24] LABS: ANION GAP 6 (5-19); BLOOD UREA NITROGEN 16 mg/dL (7-20); CALCIUM 8.9 mg/dL (8.4-10.2); CARBON DIOXIDE 30 mmol/L (22-30); CHLORIDE 104 mmol/L (98-107); GLUCOSE 97 mg/dL (75-110); POTASSIUM 4.4 mmol/L (3.6-5.0)
[2020-06-01] MEDS: MELOXICAM 15 MG TABLET PO SCH (09:16)
[2020-06-01] MEDS: DOCUSATE SODIUM 100 MG CAPSULE PO SCH ×2 (09:16→17:15)
[2020-06-01] MEDS: SERTRALINE HCL 50 MG TABLET PO SCH (09:17)
--- NOTE | 2020-06-01 15:09 | PDOC PROGRESS REPORT ---
Subjective Date:: 06/01/20 Subjective:: History of Present Illness: GUILLERMO COBOS III is a 65 year old male who has a history of Down syndrome, valvular heart disease follows up with Dr. Myers. He also has history of hypertension and recently he has been hypotensive and his blood pressure medications were modified by his primary care physician. Patient lives with his sister who is his guardian. He only speaks few words basically yes or no which is his baseline. Apparently earlier today his sister was cutting his hair while he was standing up. He is then suddenly lost his balance and backed his back to the wall and his legs started trembling and he slowly slid down to the floor. His sister said he was acting like he was spitting out his dentures. His eyes were rolling and she was not sure if he actually lost consciousness. No incontinence. This state lasted for less than 5 minutes. Patient is bradycardic in the 40s which his sister says is his baseline. He was also hypotensive on admission which his sister also says is not far from his baseline. Although he is on benazepril at home. Currently he is asymptomatic and back to his baseline. Interval history: 06/01/2020: Patient seen and examined. Looks a lot better today. No symptoms of syncope since admission. Reason For Visit: SYNCOPE Physical Exam Vital Signs: Temp Pulse Resp BP Pulse Ox 97.3 F 49 L 18 135/56 H 99 06/01/20 11:35 06/01/20 11:35 06/01/20 11:35 06/01/20 11:35 06/01/20 11:35 Intake & Output 05/31/20 06/01/20 06/02/20 06:59 06:59 06:59 Intake Total 1637 Balance 1637 Weight 126 lb 1.671 oz Exam: General appearance: PRESENT: no acute distress, cooperative Head exam: PRESENT: atraumatic, normocephalic Eye exam: PRESENT: EOMI Ear exam: ABSENT: bleeding, drainage Mouth exam: PRESENT: moist, neck supple Throat exam: ABSENT: post pharyngeal erythema, tonsillar erythema Neck exam: ABSENT: meningismus, thyromegaly Respiratory exam: PRESENT: clear to auscultation chay. ABSENT: accessory muscle use Cardiovascular exam: PRESENT: bradycardia, +S1, +S2 Pulses: PRESENT: normal carotid pulses, normal radial pulses GI/Abdominal exam: PRESENT: normal bowel sounds, soft. ABSENT: distended, tenderness Extremities exam: ABSENT: joint swelling, pedal edema Musculoskeletal exam: PRESENT: normal inspection. ABSENT: deformity, tenderness Neurological exam: PRESENT: alert, awake, CN II-XII grossly intact Psychiatric exam: PRESENT: normal mood Results Laboratory Results: 06/01/20 06:07 06/01/20 06:07 05/31/20 06/01/20 06/01/20 08:29 06:07 06:07 WBC 4.9 RBC 3.82 L Hgb 12.9 L Hct 36.7 L MCV 96 MCH 33.8 H MCHC 35.2 RDW 14.2 H Plt Count 152 Sodium 139.6 Potassium 4.4 Chloride 104 Carbon Dioxide 30 Anion Gap 6 BUN 16 Creatinine 0.95 Est GFR ( Amer) > 60 Glucose 97 Calcium 8.9 Triglycerides 162 H Cholesterol 117.49 LDL Cholesterol Direct 53 VLDL Cholesterol 32.4 H HDL Cholesterol 32 L TSH 06/01/20 06:07 WBC RBC Hgb Hct MCV MCH MCHC RDW Plt Count Sodium Potassium Chloride Carbon Dioxide Anion Gap BUN Creatinine Est GFR ( Amer) Glucose Calcium Triglycerides Cholesterol LDL Cholesterol Direct VLDL Cholesterol HDL Cholesterol TSH 2.91 05/31/20 05/31/20 05/31/20 08:29 08:29 11:34 Creatine Kinase 73 CK-MB (CK-2) 0.71 Troponin I 0.070 < 0.012 05/31/20 05/31/20 06/01/20 18:06 23:52 06:07 Creatine Kinase CK-MB (CK-2) Troponin I < 0.012 < 0.012 < 0.012 Impressions: Chest X-Ray 05/31/20 10:09 IMPRESSION: No evidence of acute intrathoracic process. Head CT 05/31/20 10:09 IMPRESSION: CHRONIC CHANGES OF ATROPHY AND MICROVASCULAR ISCHEMIA. NO EVIDENCE OF ACUTE INTRACRANIAL PROCESS. EVIDENCE OF ACUTE STROKE: NO. Chest/Abdomen CTA 05/31/20 11:03 IMPRESSION: No evidence of pulmonary embolus or other acute intrathoracic findings. Assessment and Plan - Diagnosis (1) Syncope and collapse Is this a current diagnosis for this admission?: Yes (2) Bradycardia Is this a current diagnosis for this admission?: Yes (3) Hypotension Is this a current diagnosis for this admission?: Yes (4) Dyslipidemia Is this a current diagnosis for this admission?: Yes (5) GERD (gastroesophageal reflux disease) Is this a current diagnosis for this admission?: Yes (6) Depression Is this a current diagnosis for this admission?: Yes (7) Valvular heart disease Is this a current diagnosis for this admission?: Yes - Plan Summary Summary: (1) Syncope and collapse Most likely neurocardiogenic in origin. Patient has sinus bradycardia at baseline. He is known to be hypotensive as reported by his sister. Interestingly he is on benazepril outpatient. We stopped benazepril and his blood pressure now is better. Echocardiogram shows normal EF and known aortic incompetence. Discussed with his director of personnel Dr. Myers. He recommends neurology work-up. MRI and EEG ordered. (2) Bradycardia Patient is currently sinus tachycardia. He is asymptomatic. Continue to monitor on telemetry. Normal TSH. (3) Hypotension Patient is on benazepril which we held. Continue to monitor his blood pressure. Currently improved. (4) Dyslipidemia Continue simvastatin (5) GERD (gastroesophageal reflux disease) Continue Protonix (6) Depression Continue Zoloft (7) Valvular heart disease Follows with Dr. Myers outpatient. - Time Anticipated Discharge Disposition: Home, Self Care Anticipated Discharge Timeframe: within 72 hours
[2020-06-01] MEDS: SIMVASTATIN 10 MG TABLET PO SCH (17:15)
--- NOTE | 2020-06-01 22:26 | Progress Note ---
Provider Note Provider Note: CARDIOLOGY PROGRESS NOTE by Dr. Oksana Myers on 06/01/2020. OBJECTIVE: There is no further episodes of syncope or dizziness. There is no arrhythmias seen on the monitor. The patient appears to be comfortable and denies any chest pain or discomfort. Work-up for POPULATION HEALTH MANAGER etiology of patient's symptoms is being done. PHYSICAL EXAMINATION: Patient has features of Down syndrome he is in no acute distress. Selected Entries 06/01/20 15:24 Temperature 97.5 F Temperature Oral Source Pulse Rate 61 Respiratory 18 Rate Blood Pressure 119/68 Blood Pressure 85 Mean BP Location Right Arm BP Position Sitting HEAD: Is atraumatic normocephalic. EYES: Pupils are equal round regular reactive to light accommodation. Extraocular movements are normal. There is no conjunctival pallor. There is no scleral icterus. EARS: Tympanic membranes are intact. NOSE: There is no deviated nasal septum. There is no inflammation of the nasal mucous membrane. MOUTH: Mucous membranes of mouth are mildly dry. Tongue is slightly dry. There is no ulcers. There is no bleeding from the gums. THROAT: There is no redness of the oropharynx. There is no exudates. SKIN: There is no skin lesions. There is no skin rashes. There is no petechia or ecchymosis. NECK: Supple. There is no JVD. Carotids are equal there is no bruit. There is no lymphadenopathy. There is no goiter. There is no accessory muscle respiration use. Trachea central. LUNGS: Clear to auscultation percuss ion without any rhonchi rales wheezing. HEART: S1-S2 is heard there is no S3 gallop. There is no S4 gallop. There is systolic murmur left sternal border and the apex without radiation. There is questionable soft mid diastolic murmur of aortic regurgitation. There is no peripheral signs of aortic regurgitation. There is no rub. ABDOMEN: Soft. Nontender there is no paraspinal megaly. Bowel sounds are well heard. [employer] HEALTH MANAGER: Patient is conscious awake he appears to be mentally retarded. There with no focal deficit. PSYCHIATRIC: The patient does not appear to be agitated or anxious. Labs- All tests 24 hr 05/31/20 06/01/20 06/01/20 23:52 06:07 06:07 WBC 4.9 RBC 3.82 L Hgb 12.9 L Hct 36.7 L MCV 96 MCH 33.8 H MCHC 35.2 RDW 14.2 H Plt Count 152 Sodium Potassium Chloride Carbon Dioxide Anion Gap BUN Creatinine Est GFR ( Amer) Est GFR (MDRD) Non-Af Glucose Calcium Troponin I < 0.012 < 0.012 TSH 06/01/20 06/01/20 06:07 06:07 WBC RBC Hgb Hct MCV MCH MCHC RDW Plt Count Sodium 139.6 Potassium 4.4 Chloride 104 Carbon Dioxide 30 Anion Gap 6 BUN 16 Creatinine 0.95 Est GFR ( Amer) > 60 Est GFR (MDRD) Non-Af > 60 Glucose 97 Calcium 8.9 Troponin I TSH 2.91 Chest X-Ray 05/31/20 10:09 IMPRESSION: No evidence of acute intrathoracic process. Head CT 05/31/20 10:09 IMPRESSION: CHRONIC CHANGES OF ATROPHY AND MICROVASCULAR ISCHEMIA. NO EVIDENCE OF ACUTE INTRACRANIAL PROCESS. EVIDENCE OF ACUTE STROKE: NO. Chest/Abdomen CTA 05/31/20 11:03 IMPRESSION: No evidence of pulmonary embolus or other acute intrathoracic findings. IMPRESSION/RECOMMENDATION: 1. Near syncopal episode cardiogenic versus neurogenic. The question is whether this is secondary to arrhythmia since the patient is bradycardic versus secondary to postural hypotension secondary to antihypertensive needs to be certain. The other differential diagnosis is neurogenic cause such as seizure disorder. Would recommend an neurological work-up. Also would recommend that the patient have a event monitor as an outpatient. Agree with holding his blood pressure medication for now. And possibly restarting at a smaller dose. MRI has been ordered by the hospitalist. Also EEG has been ordered. 2. Hypertension: At present blood pressure stable. Would recommend holding the blood pressure medication and restarting at a smaller dose. 3. Mild aortic regurgitation which is clinically not significant. Also no significant pulmonary hypertension to account for the patient's symptomatology. 4. Down syndrome. 5. Mental retardation. Medications reviewed. Medical regimen management plan discussed with attending. On the case. Also discussed with the patient's sister all of the above recommendations. Medical decision making is of moderate complexity. 40 minutes spent as patient more than 50% of time spent direct patient care. Will follow.
[2020-06-02] MEDS: PANTOPRAZOLE SODIUM 40 MG TABLET.DR PO SCH (05:46)
[2020-06-02] MEDS: MELOXICAM 15 MG TABLET PO SCH (09:43)
[2020-06-02] MEDS: DOCUSATE SODIUM 100 MG CAPSULE PO SCH ×2 (09:44→19:42)
[2020-06-02] MEDS: MIDODRINE HCL 5 MG TABLET PO SCH ×3 (09:44→19:43)
[2020-06-02] MEDS: SERTRALINE HCL 50 MG TABLET PO SCH (09:45)
--- NOTE | 2020-06-02 10:34 | PDOC PROGRESS REPORT ---
Subjective Date:: 06/02/20 Subjective:: History of Present Illness: GUILLERMO COBOS III is a 65 year old male who has a history of Down syndrome, valvular heart disease follows up with Dr. Myers. He also has history of hypertension and recently he has been hypotensive and his blood pressure medications were modified by his primary care physician. Patient lives with his sister who is his guardian. He only speaks few words basically yes or no which is his baseline. Apparently earlier today his sister was cutting his hair while he was standing up. He is then suddenly lost his balance and backed his back to the wall and his legs started trembling and he slowly slid down to the floor. His sister said he was acting like he was spitting out his dentures. His eyes were rolling and she was not sure if he actually lost consciousness. No incontinence. This state lasted for less than 5 minutes. Patient is bradycardic in the 40s which his sister says is his baseline. He was also hypotensive on admission which his sister also says is not far from his baseline. Although he is on benazepril at home. Currently he is asymptomatic and back to his baseline. Interval history: 06/01/2020: Patient seen and examined. Looks a lot better today. No symptoms of syncope since admission. 01/31/2020: Patient seen and examined. Seems to be at his baseline. MRI and EEG not done yet for unknown reasons. Blood pressure is on the low side, we will start midodrine today. Reason For Visit: SYNCOPE Physical Exam Vital Signs: Temp Pulse Resp BP Pulse Ox 97.5 F 60 16 97/61 L 98 06/02/20 08:54 06/02/20 08:06 06/02/20 08:06 06/02/20 08:06 06/02/20 08:06 Intake & Output 06/01/20 06/02/20 06/03/20 06:59 06:59 06:59 Intake Total 1637 240 Balance 1637 240 Weight 126 lb 1.671 oz 126 lb 12.253 oz Exam: General appearance: PRESENT: no acute distress, cooperative Head exam: PRESENT: atraumatic, normocephalic Eye exam: PRESENT: EOMI Ear exam: ABSENT: bleeding, drainage Mouth exam: PRESENT: moist, neck supple Throat exam: ABSENT: post pharyngeal erythema, tonsillar erythema Neck exam: ABSENT: meningismus, thyromegaly Respiratory exam: PRESENT: clear to auscultation chay. ABSENT: accessory muscle use Cardiovascular exam: PRESENT: bradycardia, +S1, +S2 Pulses: PRESENT: normal carotid pulses, normal radial pulses GI/Abdominal exam: PRESENT: normal bowel sounds, soft. ABSENT: distended, tenderness Extremities exam: ABSENT: joint swelling, pedal edema Musculoskeletal exam: PRESENT: normal inspection. ABSENT: deformity, tenderness Neurological exam: PRESENT: alert, awake, CN II-XII grossly intact Psychiatric exam: PRESENT: normal mood Results Laboratory Results: 06/01/20 06:07 06/01/20 06:07 05/31/20 05/31/20 05/31/20 08:29 08:29 11:34 Creatine Kinase 73 CK-MB (CK-2) 0.71 Troponin I 0.070 < 0.012 05/31/20 05/31/20 06/01/20 18:06 23:52 06:07 Creatine Kinase CK-MB (CK-2) Troponin I < 0.012 < 0.012 < 0.012 Impressions: Chest X-Ray 05/31/20 10:09 IMPRESSION: No evidence of acute intrathoracic process. Head CT 05/31/20 10:09 IMPRESSION: CHRONIC CHANGES OF ATROPHY AND MICROVASCULAR ISCHEMIA. NO EVIDENCE OF ACUTE INTRACRANIAL PROCESS. EVIDENCE OF ACUTE STROKE: NO. Chest/Abdomen CTA 05/31/20 11:03 IMPRESSION: No evidence of pulmonary embolus or other acute intrathoracic findings. Assessment and Plan - Diagnosis (1) Syncope and collapse Is this a current diagnosis for this admission?: Yes (2) Bradycardia Is this a current diagnosis for this admission?: Yes (3) Hypotension Is this a current diagnosis for this admission?: Yes (4) Dyslipidemia Is this a current diagnosis for this admission?: Yes (5) GERD (gastroesophageal reflux disease) Is this a current diagnosis for this admission?: Yes (6) Depression Is this a current diagnosis for this admission?: Yes (7) Valvular heart disease Is this a current diagnosis for this admission?: Yes - Plan Summary Summary: (1) Syncope and collapse Most likely neurocardiogenic in origin. Patient has sinus bradycardia at baseline. He is known to be hypotensive as reported by his sister. Interestingly he is on benazepril outpatient. We stopped benazepril and his blood pressure now is better. Echocardiogram shows normal EF and known aortic incompetence. Discussed with his account liaison Dr. Myers. He recommends neurology work-up. MRI and EEG ordered, not done yet. (2) Bradycardia Patient is currently sinus tachycardia. He is asymptomatic. Continue to monitor on telemetry. Normal TSH. (3) Hypotension Patient is on benazepril which we held. Continue to monitor his blood pressure. Patient has orthostatic hypotension, we started midodrine.. (4) Dyslipidemia Continue simvastatin (5) GERD (gastroesophageal reflux disease) Continue Protonix (6) Depression Continue Zoloft (7) Valvular heart disease Follows with Dr. Myers outpatient. - Time Anticipated Discharge Disposition: Home, Self Care Anticipated Discharge Timeframe: within 72 hours
[2020-06-02] MEDS ORDERED: LORAZEPAM 1 MG TABLET PO ONE (16:45)
--- NOTE | 2020-06-02 17:09 | Progress Note ---
Provider Note Provider Note: CARDIOLOGY PROGRESS NOTE by Dr. Oksana Myers on 06/02/2020. OBJECTIVE: There is no further episodes of syncope or dizziness. There is no arrhythmias seen on the monitor. The patient appears to be comfortable and denies any chest pain or discomfort. He had his MRI. Report awaited PHYSICAL EXAMINATION: Patient has features of Down syndrome he is in no acute distress. Selected Entries 06/02/20 11:33 Temperature 97.5 F Temperature Axillary Source Pulse Rate 57 L Respiratory 16 Rate Blood Pressure 116/64 Blood Pressure 81 Mean BP Location Right Arm BP Position Supine O2 Sat by Pulse 100 Oximetry Oxygen Delivery Room Air Method HEAD: Is atraumatic normocephalic. EYES: Pupils are equal round regular reactive to light accommodation. Extraocular movements are normal. There is no conjunctival pallor. There is no scleral icterus. EARS: Tympanic membranes are intact. NOSE: There is no deviated nasal septum. There is no inflammation of the nasal mucous membrane. MOUTH: Mucous membranes of mouth are mildly dry. Tongue is slightly dry. There is no ulcers. There is no bleeding from the gums. THROAT: There is no redness of the oropharynx. There is no exudates. SKIN: There is no skin lesions. There is no skin rashes. There is no petechia or ecchymosis. NECK: Supple. There is no JVD. Carotids are equal there is no bruit. There is no lymphadenopathy. There is no goiter. There is no accessory muscle respiration use. Trachea central. LUNGS: Clear to auscultation percussion without any rhonchi rales wheezing. HEART: S1-S2 is heard there is no S3 gallop. There is no S4 gallop. There is systolic murmur left sternal border and the apex without radiation. There is questionable soft mid diastolic murmur of aortic regurgitation. There is no peripheral signs of aortic regurgitation. There is no rub. ABDOMEN: Soft. Nontender there is no paraspinal megaly. Bowel sounds are well heard. [employer] INS[employer] SALES [employer]ENT: Patient is conscious awake he appears to be mentally retarded. There with no focal deficit. PSYCHIATRIC: The patient does not appear to be agitated or anxious. Chest X-Ray 05/31/20 10:09 IMPRESSION: No evidence of acute intrathoracic process. Head CT 05/31/20 10:09 IMPRESSION: CHRONIC CHANGES OF ATROPHY AND MICROVASCULAR ISCHEMIA. NO EVIDENCE OF ACUTE INTRACRANIAL PROCESS. EVIDENCE OF ACUTE STROKE: NO. Chest/Abdomen CTA 05/31/20 11:03 IMPRESSION: No evidence of pulmonary embolus or other acute intrathoracic findings. IMPRESSION/RECOMMENDATION: 1. Near syncopal episode cardiogenic versus neurogenic. The question is whether this is secondary to arrhythmia since the patient is bradycardic versus secondary to postural hypotension secondary to antihypertensive needs to be certain. The other differential diagnosis is neurogenic cause such as seizure disorder. Would recommend an neurological work-up. Also would recommend that the patient have a event monitor as an outpatient. Agree with holding his blood pressure medication for now. And possibly restarting at a smaller dose. MRI has been ordered by the hospitalist. Also EEG has been ordered. 2. Hypertension: At present blood pressure stable. Would recommend holding the blood pressure medication and restarting at a smaller dose. 3. Mild aortic regurgitation which is clinically not significant. Also no significant pulmonary hypertension to account for the patient's symptomatology. 4. Down syndrome. 5. Mental retardation. Medications reviewed. Medical regimen management plan discussed with attending. On the case. Also discussed with the patient's sister all of the above recommendations. Medical decision making is of moderate complexity. 40 minutes spent as patient more than 50% of time spent direct patient care. Will follow.
--- NOTE | 2020-06-02 17:42 | RADIOLOGY REPORT (SQ) ---
EXAM DESCRIPTION: MRI HEAD WITHOUT IMAGES COMPLETED DATE/TIME: 06/02/2020 4:15 pm REASON FOR STUDY: Seizure, confusion, weakness COMPARISON: CT head, 05/31/2020. TECHNIQUE: Multiplanar imaging includes non-contrasted T1, T2, FLAIR, and diffusion with ADC map seq uences. Images stored on PACS. LIMITATIONS: None. FINDINGS: ANATOMY: No anomalies. Normal vascular flow voids. Pituitary fossa normal. CSF SPACES: The ventricles and sulci are mildly prominent, consistent with mild cerebral and cerebell ar atrophy. No evidence of transependymal CSF flow or obstructive hydrocephalus. . CEREBRUM: Sulci and gyri normal in size and contour. Mild to moderate patchy periventricular and roly p white matter hyperintense signal on FLAIR imaging. No evidence of hemorrhage, mass, or extraaxial fluid collection. POSTERIOR FOSSA: No signal alteration. No hemorrhage. No edema, masses or mass effect. Internal chhaya tory canals, cerebello-pontine angles, mastoids normal. DIFFUSION IMAGING: Negative for acute or sub-acute infarction. ORBITS: No masses. Globes normal. PARANASAL SINUSES: No fluid levels. Mucosa normal. OTHER: No other significant finding. IMPRESSION: 1. No acute ischemia, intracranial mass or mass effect, or evidence of intracranial hemorrhage. 2. Mild to moderate chronic small vessel ischemic change. 3. Mild diffuse cerebral and cerebellar atrophy. EVIDENCE OF ACUTE STROKE: NO. TECHNICAL DOCUMENTATION: JOB ID: [id number] [employer]- All Rights Reserved Reading location - IP/workstation name: [email or web address]
[2020-06-02] MEDS: SIMVASTATIN 10 MG TABLET PO SCH (19:44)
[2020-06-03] MEDS: PANTOPRAZOLE SODIUM 40 MG TABLET.DR PO SCH (05:29)
[2020-06-03] MEDS: MIDODRINE HCL 5 MG TABLET PO SCH ×2 (11:11→14:28)
[2020-06-03] MEDS: MELOXICAM 15 MG TABLET PO SCH (11:11)
[2020-06-03] MEDS: DOCUSATE SODIUM 100 MG CAPSULE PO SCH (11:12)
[2020-06-03] MEDS: SERTRALINE HCL 50 MG TABLET PO SCH (11:12)
[2020-06-03 12:42] VITALS: BP 85/47
--- NOTE | 2020-06-03 13:32 | Progress Note ---
Provider Note Provider Note: CARDIOLOGY PROGRESS NOTE by Dr. Oksana Myers on 06/03/2020. OBJECTIVE: There is no further episodes of syncope or dizziness. There is no arrhythmias seen on the monitor. The patient appears to be comfortable and denies any chest pain or discomfort. He had his MRI. This showed that there was no acute process. PHYSICAL EXAMINATION: Patient has features of Down syndrome he is in no acute distress. Selected Entries 06/03/20 06/03/20 06/03/20 07:58 08:31 10:00 Temperature 98.0 F Respiratory 16 Rate Blood Pressure 96/63 L Blood Pressure 74 Mean BP Location Right Arm BP Position Sitting O2 Sat by Pulse 98 Oximetry Oxygen Delivery Room Air Method ( includes room air) Oxygen Delivery Room Air Method HEAD: Is atraumatic normocephalic. EYES: Pupils are equal round regular reactive to light accommodation. Extraocular movements are normal. There is no conjunctival pallor. There is no scleral icterus. EARS: Tympanic membranes are intact. NOSE: There is no deviated nasal septum. There is no inflammation of the nasal mucous membrane. MOUTH: Mucous membranes of mouth are mildly dry. Tongue is slightly dry. There is no ulcers. There is no bleeding from the gums. THROAT: There is no redness of the oropharynx. There is no exudates. SKIN: There is no skin lesions. There is no skin rashes. There is no petechia or ecchymosis. NECK: Supple. There is no JVD. Carotids are equal there is no bruit. There is no lymphadenopathy. There is no goiter. There is no accessory muscle respiration use. Trachea central. LUNGS: Clear to auscultation percussion without any rhonchi rales wheezing. HEART: S1-S2 is heard there is no S3 gallop. There is no S4 gallop. There is systolic murmur left sternal border and the apex without radiation. There is questionable soft mid diastolic murmur of aortic regurgitation. There is no peripheral signs of aortic regurgitation. There is no rub. ABDOMEN: Soft. Nontender there is no paraspinal megaly. Bowel sounds are well heard. MANAGER CLEANING: Patient is conscious awake he appears to be mentally retarded. There with no focal deficit. PSYCHIATRIC: The patient does not appear to be agitated or anxious. Chest X-Ray 05/31/20 10:09 IMPRESSION: No evidence of acute intrathoracic process. Head CT 05/31/20 10:09 IMPRESSION: CHRONIC CHANGES OF ATROPHY AND MICROVASCULAR ISCHEMIA. NO EVIDENCE OF ACUTE INTRACRANIAL PROCESS. EVIDENCE OF ACUTE STROKE: NO. Chest/Abdomen CTA 05/31/20 11:03 IMPRESSION: No evidence of pulmonary embolus or other acute intrathoracic findings. Head MRI 06/02/20 00:00 IMPRESSION: 1. No acute ischemia, intracranial mass or mass effect, or evidence of intracranial hemorrhage. 2. Mild to moderate chronic small vessel ischemic change. 3. Mild diffuse cerebral and cerebellar atrophy. EVIDENCE OF ACUTE STROKE: NO. IMPRESSION/RECOMMENDATION: 1. Near syncopal episode cardiogenic versus neurogenic. There is no recurrence and no arrhythmias seen on the monitor. We will get a 14-day event monitor as an outpatient. Cardiac status appears to be stable although his blood pressure is on the lower normal side. Hence would hold his antihypertensives. 2. Hypertension: At present blood pressure stable. Would recommend holding the blood pressure medication and restarting at a smaller dose. 3. Mild aortic regurgitation which is clinically not significant. Also no significant pulmonary hypertension to account for the patient's symptomatology. 4. Down syndrome. 5. Mental retardation. Medications reviewed. Medical regimen management plan discussed with attending. On the case. Also discussed with the patient's sister all of the above recommendations. Medical decision making is of moderate complexity. 40 minutes spent as patient more than 50% of time spent direct patient care. Will sign off and will follow patient in the office. Discussed with the patient's sister.
--- NOTE | 2020-06-03 14:08 | PDOC DISCHARGE SUMMARY ---
Impression - Admit/DC Date/PCP Admission Date/Primary Care Provider: 05/31/20 15:29 JOSE TOMLINSON MD Discharge Date: 06/03/20 - Discharge Diagnosis (1) Syncope and collapse Is this a current diagnosis for this admission?: Yes (2) Bradycardia Is this a current diagnosis for this admission?: Yes (3) Hypotension Is this a current diagnosis for this admission?: Yes (4) Dyslipidemia Is this a current diagnosis for this admission?: Yes (5) GERD (gastroesophageal reflux disease) Is this a current diagnosis for this admission?: Yes (6) Depression Is this a current diagnosis for this admission?: Yes (7) Valvular heart disease Is this a current diagnosis for this admission?: Yes - Assessment Summary: (1) Syncope and collapse Most likely neurocardiogenic in origin. Patient has sinus bradycardia at baseline. He is known to be hypotensive as reported by his sister. Interestingly he is on benazepril outpatient. We stopped benazepril and his blood pressure now is better. Echocardiogram shows normal EF and known aortic incompetence. Discussed with his transmission repairer Dr. Olsen. He recommends neurology work-up. MRI and EEG ordered, not done yet. (2) Bradycardia Patient is currently sinus tachycardia. He is asymptomatic. Continue to monitor on telemetry. Normal TSH. (3) Hypotension Patient is on benazepril which we held. Continue to monitor his blood pressure. Patient has orthostatic hypotension, we started midodrine.. (4) Dyslipidemia Continue simvastatin (5) GERD (gastroesophageal reflux disease) Continue Protonix (6) Depression Continue Zoloft (7) Valvular heart disease Follows with Dr. Olsen outpatient. - Additional Information Discharge Diet: Cardiac Discharge Activity: Activity As Tolerated Referrals: WANG OLSEN MD [ACTIVE STAFF] - JOSE TOMLINSON MD [Primary Care Provider] - Follow up as needed Prescriptions: Midodrine HCl [Proamatine 5 mg Tablet] 5 mg PO TID #90 tablet Home Medications: Sertraline HCl [Zoloft 50 mg Tablet] 50 mg PO DAILY 03/15/15 Simvastatin [Zocor 20 mg Tablet] 20 mg PO QPM 03/15/15 Docusate Sodium [Colace 100 mg Capsule] 100 mg PO BID 05/31/20 Famotidine [Pepcid 20 mg Tablet] 20 mg PO BID 05/31/20 Meloxicam [Mobic] 15 mg PO DAILY 05/31/20 Pantoprazole Sodium [Protonix [address] Tablet] 40 mg PO Q6AM 05/31/20 Midodrine HCl [Proamatine 5 mg Tablet] 5 mg PO TID #90 tablet 06/03/20 History of Present Illiness History of Present Illness: GUILLERMO COBOS III is a 65 year old male who has a history of Down syndrome, valvular heart disease follows up with Dr. Olsen. He also has history of hypertension and recently he has been hypotensive and his blood pressure medications were modified by his primary care physician. Patient lives with his sister who is his guardian. He only speaks few words basically yes or no which is his baseline. Apparently earlier today his sister was cutting his hair while he was standing up. He is then suddenly lost his balance and backed his back to the wall and his legs started trembling and he slowly slid down to the floor. His sister said he was acting like he was spitting out his dentures. His eyes were rolling and she was not sure if he actually lost consciousness. No incontinence. This state lasted for less than 5 minutes. Patient is bradycardic in the 40s which his sister says is his baseline. He was also hypotensive on admission which his sister also says is not far from his baseline. Although he is on benazepril at home. Currently he is asymptomatic and back to his baseline. History of Present Illness: Interval history: 06/01/2020: Patient seen and examined. Looks a lot better today. No symptoms of syncope since admission. 01/31/2020: Patient seen and examined. Seems to be at his baseline. MRI and EEG not done yet for unknown reasons. Blood pressure is on the low side, we will start midodrine today. Hospital Course Hospital Course: (1) Syncope and collapse Most likely neurocardiogenic in origin. Patient has sinus bradycardia at baseline. He is known to be hypotensive as reported by his sister. Interest ingly he is on benazepril outpatient. We stopped benazepril and his blood pressure now is better. Echocardiogram shows normal EF and known aortic incompetence. Discussed with his transmission repairer Dr. Olsen. He recommends neurology work-up. MRI and EEG ordered. (2) Bradycardia Patient is currently sinus tachycardia. He is asymptomatic. Continue to monitor on telemetry. Normal TSH. (3) Hypotension Patient is on benazepril which we held. Continue to monitor his blood pressure. Patient has orthostatic hypotension, we started midodrine.. (4) Dyslipidemia Continue simvastatin (5) GERD (gastroesophageal reflux disease) Continue Protonix (6) Depression Continue Zoloft (7) Valvular heart disease Follows with Dr. Olsen outpatient. Patient is asymptomatic. MRI unremarkable. Positive orthostatic hypotension and will be discharged on midodrine. EEG can be done outpatient. Dr. Olsen will follow up outpatient for possible cardiac monitoring. Physical Exam Vital Signs: Temp Pulse Resp BP Pulse Ox 98.0 F 66 16 85/47 L 100 06/03/20 10:43 06/03/20 11:51 06/03/20 11:51 06/03/20 11:51 06/03/20 11:51 Intake & Output 06/02/20 06/03/20 06/04/20 06:59 06:59 06:59 Intake Total 240 1760 Balance 240 1760 Weight 126 lb 12.253 oz 127 lb 3.307 oz Exam: General appearance: PRESENT: no acute distress, cooperative Head exam: PRESENT: atraumatic, normocephalic Eye exam: PRESENT: EOMI Ear exam: ABSENT: bleeding, drainage Mouth exam: PRESENT: moist, neck supple Throat exam: ABSENT: post pharyngeal erythema, tonsillar erythema Neck exam: ABSENT: meningismus, thyromegaly Respiratory exam: PRESENT: clear to auscultation chay. ABSENT: accessory muscle use Cardiovascular exam: PRESENT: bradycardia, +S1, +S2 Pulses: PRESENT: normal carotid pulses, normal radial pulses GI/Abdominal exam: PRESENT: normal bowel sounds, soft. ABSENT: distended, tenderness Extremities exam: ABSENT: joint swelling, pedal edema Musculoskeletal exam: PRESENT: normal inspection. ABSENT: deformity, tenderness Neurological exam: PRESENT: alert, awake, CN II-XII grossly intact Psychiatric exam: PRESENT: normal mood Results Laboratory Results: WBC 4.9 10^3/uL (4.0-10.5) 06/01/20 06:07 RBC 3.82 10^6/uL (4.35-5.55) L 06/01/20 06:07 Hgb 12.9 g/dL (13.5-17.0) L 06/01/20 06:07 Hct 36.7 % (37.9-51.0) L 06/01/20 06:07 MCV 96 fl (80-97) 06/01/20 06:07 MCH 33.8 pg (27.0-33.4) H 06/01/20 06:07 MCHC 35.2 g/dL (32.0-36.0) 06/01/20 06:07 RDW 14.2 % (11.5-14.0) H 06/01/20 06:07 Plt Count 152 10^3/uL (150-450) 06/01/20 06:07 Lymph % (Auto) 30.4 % (13-45) 05/31/20 08:29 [place] % (Auto) 9.9 % (3-13) 05/31/20 08:29 Eos % (Auto) 2.5 % (0-6) 05/31/20 08:29 Baso % (Auto) 1.4 % (0-2) 05/31/20 08:29 Absolute Neuts (auto) 2.5 10^3/uL (1.7-8.2) 05/31/20 08:29 Absolute Lymphs (auto) 1.3 10^3/uL (0.5-4.7) 05/31/20 08:29 Absolute Monos (auto) 0.4 10^3/uL (0.1-1.4) 05/31/20 08:29 Absolute Eos (auto) 0.1 10^3/uL (0.0-0.6) 05/31/20 08:29 Absolute Basos (auto) 0.1 10^3/uL (0.0-0.2) 05/31/20 08:29 Seg Neutrophils % 55.8 % (42-78) 05/31/20 08:29 D-Dimer 1.14 ug/mL (0.00-0.50) H 05/31/20 08:29 Sodium 139.6 mmol/L (137-145) 06/01/20 06:07 Potassium 4.4 mmol/L (3.6-5.0) 06/01/20 06:07 Chloride 104 mmol/L (98-107) 06/01/20 06:07 Carbon Dioxide 30 mmol/L (22-30) 06/01/20 06:07 Anion Gap 6 (5-19) 06/01/20 06:07 BUN 16 mg/dL (7-20) 06/01/20 06:07 Creatinine 0.95 mg/dL (0.52-1.25) 06/01/20 06:07 Est GFR ( Amer) > 60 (>60) 06/01/20 06:07 Est GFR (MDRD) Non-Af > 60 (>60) 06/01/20 06:07 Glucose 97 mg/dL (75-110) 06/01/20 06:07 Hemoglobin A1c % 5.2 % (4.7-6.0) 05/31/20 08:29 Calcium 8.9 mg/dL (8.4-10.2) 06/01/20 06:07 Total Bilirubin 0.7 mg/dL (0.2-1.3) 05/31/20 08:29 Direct Bilirubin 0.2 mg/dL (0.0-0.4) 05/31/20 08:29 Neonat Total Bilirubin Not Reportable 05/31/20 08:29 Neonat Direct Bilirubin Not Reportable 05/31/20 08:29 Neonat Indirect Bili Not Reportable 05/31/20 08:29 AST 29 U/L (17-59) 05/31/20 08:29 ALT 22 U/L (<50) 05/31/20 08:29 Alkaline Phosphatase 74 U/L (38-126) 05/31/20 08:29 Creatine Kinase 73 U/L (55-170) 05/31/20 08:29 CK-MB (CK-2) 0.71 ng/mL (<4.55) 05/31/20 08:29 Troponin I < 0.012 ng/mL 06/01/20 06:07 Total Protein 6.1 g/dL (6.3-8.2) L 05/31/20 08:29 Albumin 3.3 g/dL (3.5-5.0) L 05/31/20 08:29 Triglycerides 162 mg/dL (<150) H 05/31/20 08:29 Cholesterol 117.49 mg/dL (0-200) 05/31/20 08:29 LDL Cholesterol Direct 53 mg/dL (<100) 05/31/20 08:29 VLDL Cholesterol 32.4 mg/dL (10-31) H 05/31/20 08:29 HDL Cholesterol 32 mg/dL (>40) L 05/31/20 08:29 TSH 2.91 uIU/mL (0.47-4.68) 06/01/20 06:07 Urine Color YELLOW 05/31/20 12:50 Urine Appearance CLEAR 05/31/20 12:50 Urine pH 8.0 (5.0-9.0) 05/31/20 12:50 Ur Specific [place] 1.014 05/31/20 12:50 Urine Protein NEGATIVE mg/dL (NEGATIVE) 05/31/20 12:50 Urine Glucose (UA) NEGATIVE mg/dL (NEGATIVE) 05/31/20 12:50 Urine Ketones NEGATIVE mg/dL (NEGATIVE) 05/31/20 12:50 Urine Blood NEGATIVE (NEGATIVE) 05/31/20 12:50 Urine Nitrite NEGATIVE (NEGATIVE) 05/31/20 12:50 Urine Bilirubin NEGATIVE (NEGATIVE) 05/31/20 12:50 Urine Urobilinogen NEGATIVE mg/dL (<2.0) 05/31/20 12:50 Ur Leukocyte Esterase NEGATIVE (NEGATIVE) 05/31/20 12:50 Urine WBC (Auto) 1 /HPF 05/31/20 12:50 Urine RBC (Auto) 0 /HPF 05/31/20 12:50 Urine Ascorbic Acid NEGATIVE (NEGATIVE) 05/31/20 12:50 05/31/20 05/31/20 05/31/20 08:29 11:34 18:06 CK-MB (CK-2) 0.71 Troponin I 0.070 < 0.012 < 0.012 05/31/20 06/01/20 23:52 06:07 CK-MB (CK-2) Troponin I < 0.012 < 0.012 Impressions: Chest X-Ray 05/31/20 10:09 IMPRESSION: No evidence of acute intrathoracic process. Head CT 05/31/20 10:09 IMPRESSION: CHRONIC CHANGES OF ATROPHY AND MICROVASCULAR ISCHEMIA. NO EVIDENCE OF ACUTE INTRACRANIAL PROCESS. EVIDENCE OF ACUTE STROKE: NO. Chest/Abdomen CTA 05/31/20 11:03 IMPRESSION: No evidence of pulmonary embolus or other acute intrathoracic findings. Head MRI 06/02/20 00:00 IMPRESSION: 1. No acute ischemia, intracranial mass or mass effect, or evidence of intracranial hemorrhage. 2. Mild to moderate chronic small vessel ischemic change. 3. Mild diffuse cerebral and cerebellar atrophy. EVIDENCE OF ACUTE STROKE: NO. Stroke Is this a Stroke Patient?: No Acute Heart Failure Is this a Heart Failure Patient?: No
== END 2020-06-03 14:29 | disposition home or self-care (01) | DRG 312 ==
LOC: ER 08:21 → OBSVTOIN 15:29 → EH 15:29 → 4N 17:29
PROVIDERS: ADMIT Family Medicine; ATTEND Family Medicine
DX: R55 Syncope and collapse (principal); R00.1 Bradycardia, unspecified; I95.9 Hypotension, unspecified; E78.5 Hyperlipidemia, unspecified; I35.1 Nonrheumatic aortic (valve) insufficiency; F79 Unspecified intellectual disabilities; E78.00 Pure hypercholesterolemia, unspecified; I10 Essential (primary) hypertension; K21.9 Gastro-esophageal reflux disease without esophagitis; F32.9 Major depressive disorder, single episode, unspecified; M19.90 Unspecified osteoarthritis, unspecified site; D64.9 Anemia, unspecified; Z79.899 Other long term (current) drug therapy; Z88.6 Allergy status to analgesic agent; Q90.9 Down syndrome, unspecified; Z79.1 Long term (current) use of non-steroidal anti-inflammatories (NSAID)
CPT/HCPCS: 36415; 70450; 70551; 71045; 71275; 80048; 80053; 80061; 81001; 82550; 82553; 83036; 84443; 84484; 85025; 85027; 85379; 93005; 93010; 93306; 96360; 99285; G0378; J3490; J7030

== ENCOUNTER 2020-06-12 17:42 | Emergency (ER) | payer MEDICARE, MEDICAID ==
--- NOTE | 2020-06-12 20:25 | ER Document Report ---
ED Medical Screen (RME) - General Chief Complaint: Difficulty Swallowing Stated Complaint: DIFFICULTY SWALLOWING Time Seen by Provider: 06/12/20 20:15 Primary Care Provider: JOSE TOMLINSON MD [Primary Care Provider] - Follow up as needed Mode of Arrival: Ambulatory Information source: Relative Notes: HPI; 65-year-old male with Down syndrome was brought to the emergency room by his sister with concerns for persistent choking for the past 2 months. Sister states is getting progressively worse today when he was out with his day person they told her that he choked on all food and drinks. States he is now not able to tolerate anything p.o. Sister states he has an appointment with a mascara molder but not until August. PE: Patient is alert and cooperative. Lungs: Clear to auscultation without rales, rhonchi, wheezes. Heart: Regular rate rhythm without murmurs, rubs, gallops. I have greeted and performed a rapid initial assessment of this patient. A comprehensive ED assessment and evaluation of the patient, analysis of test results and completion of the medical decision making process will be conducted by additional ED providers. I have specifically instructed the patient or family members with the patient to immediately return to any nursing staff should anything change in the patient's condition or with their chief complaint. TRAVEL OUTSIDE OF THE [place] IN LAST 30 DAYS: No - Related Data Allergies/Adverse Reactions: ibuprofen Adverse Reaction (Intermediate, Verified 03/09/19 10:18) GI upset Past Medical History - Past Medical History Cardiac Medical History: Reports: Hx Hypercholesterolemia - meds x 6 years, Hx Hypertension - meds x 6 years, Hx Heart Murmur - no SBE prophylaxis recommended on echo report Denies: Hx Atrial Fibrillation, Hx Congestive Heart Failure, Hx Coronary Artery Disease, Hx Heart Attack, Hx Peripheral Vascular Disease Pulmonary Medical History: Denies: Hx Asthma, Hx Bronchitis, Hx COPD, Hx Pneumonia Neurological Medical History: Denies: Hx Cerebrovascular Accident, Hx Seizures, Hx Parkinson's Disease Endocrine Medical History: Denies: Hx Diabetes Mellitus Type 1, Hx Diabetes Marely itus Type 2 Malignancy Medical History: Denies Hx Leukemia GI Medical History: Reports: Hx Gastroesophageal Reflux Disease - meds x 10 years. Denies: Hx Crohn's Disease, Hx Hiatal Hernia, Hx Irritable Bowel, Hx Liver Failure, Hx Pancreatitis, Hx Ulcer Musculoskeltal Medical History: Reports Hx Arthritis, Denies Hx Fibromyalgia, Denies Hx Multiple Sclerosis, Denies Hx Muscular Dystrophy Psychiatric Medical History: Reports: Hx Depression Denies: Hx Bipolar Disorder, Hx Dementia, Hx Post Traumatic Stress Disorder, Hx Schizophrenia Traumatic Medical History: Denies: Hx Fractures Infectious Medical History: Denies: Hx HIV Past Surgical History: Reports: Hx Orthopedic Surgery. Denies: Hx Appendectomy, Hx Bowel Surgery, Hx Cholecystectomy, Hx Colostomy, Hx Coronary Artery Bypass Graft, Hx Gastric Bypass Surgery, Hx Herniorrhaphy, Hx Pacemaker, Hx Tonsillectomy - Immunizations Hx Diphtheria, Pertussis, Tetanus Vaccination: Yes Physical Exam - Vital signs Vitals: Temp Pulse Resp BP Pulse Ox 98.2 F 82 18 110/66 99 06/12/20 19:20 06/12/20 19:20 06/12/20 19:20 06/12/20 19:20 06/12/20 19:20 Course - Vital Signs Vital signs: Temp Pulse Resp BP Pulse Ox 98.2 F 82 18 110/66 99 06/12/20 19:20 06/12/20 19:20 06/12/20 19:20 06/12/20 19:20 06/12/20 19:20 Doctor's Discharge - Discharge Referrals: JOSE TOMLINSON MD [Primary Care Provider] - Follow up as needed
[2020-06-12 21:13] LABS: ABSOLUTE BASOPHILS # (AUTO) 0.1 10^3/uL (0.0-0.2); ABSOLUTE EOSINOPHILS # (AUTO) 0.1 10^3/uL (0.0-0.6); ABSOLUTE LYMPHOCYTES (AUTO) 1.7 10^3/uL (0.5-4.7); ABSOLUTE MONOCYTES (AUTO) 0.5 10^3/uL (0.1-1.4); BASOPHILS % (AUTO) 1.1 % (0-2); EOSINOPHILS % (AUTO) 1.9 % (0-6); HEMATOCRIT 38.2 % (37.9-51.0); HEMOGLOBIN 13.5 g/dL (13.5-17.0); LYMPHOCYTES % (AUTO) 26.2 % (13-45); MEAN CORPUSCULAR HEMOGLOBIN 33.7 pg (27.0-33.4); MEAN CORPUSCULAR HGB CONC 35.4 g/dL (32.0-36.0); MEAN CORPUSCULAR VOLUME 95 fl (80-97); MONOCYTES % (AUTO) 7.8 % (3-13); PLATELET COUNT 201 10^3/uL (150-450); RED BLOOD COUNT 4.01 10^6/uL (4.35-5.55); RED CELL DISTRIBUTION WIDTH 14.3 % (11.5-14.0); TOTAL CELLS COUNTED % (AUTO) 100 %; WHITE BLOOD COUNT 6.4 10^3/uL (4.0-10.5)
[2020-06-12 21:35] LABS: ALKALINE PHOSPHATASE 101 U/L (38-126); ANION GAP 6 (5-19); ASPARTATE AMINO TRANSFERASE 32 U/L (17-59); BILIRUBIN,DIRECT 0.4 mg/dL (0.0-0.4); BILIRUBIN,TOTAL 0.9 mg/dL (0.2-1.3); BLOOD UREA NITROGEN 18 mg/dL (7-20); CALCIUM 9.1 mg/dL (8.4-10.2); CARBON DIOXIDE 33 mmol/L (22-30); CHLORIDE 100 mmol/L (98-107); GLUCOSE 111 mg/dL (75-110); POTASSIUM 4.5 mmol/L (3.6-5.0); TOTAL PROTEIN 7.3 g/dL (6.3-8.2)
--- NOTE | 2020-06-13 01:27 | RADIOLOGY REPORT (SQ) ---
EXAM DESCRIPTION: CT NECK WITH IV CONTRAST COMPLETED DATE/TME: 06/13/2020 00:55 CLINICAL HISTORY: 65 years, Male, Dysphagia COMPARISON: None. TECHNIQUE: 290 Images stored on PACS. All CT scanners at this facility use dose modulation, iterative reconstruction, and/or weight based dosing when appropriate to reduce radiation dose to as low as reasonably achievable (ALARA). [facility]: Dose Right [facility]: CareDose [facility]: Dose Right [facility]: Teradose 4D [facility]: [employer] LIMITATIONS: None. FINDINGS: Limited evaluation of brain parenchyma is unremarkable. The globes are intact. The paranasal sinuses and mastoid air cells are well aerated. Multilevel degenerative change throughout the cervical spine. Limited evaluation of the lung apices is unremarkable. The parotid and submandibular glands are unremarkable. There is no cervical chain adenopathy. The epiglottis is normal. The airway is widely patent. No discrete enhancing abnormality or abnormal fluid collection. There is significant artifact from the contrast bolus in the right subclavian vein. IMPRESSION: Evaluation for the patient's dysphagia indeterminate based on this exam. Continued clinical follow-up recommended. TECHNICAL DOCUMENTATION: Quality ID # 436: Final reports with documentation of one or more dose reduction techniques (e.g., Automated exposure control, adjustment of the mA and/or kV according to patient size, use of iterative reconstruction technique) copyright 2011 [employer]- All Rights Reserved
--- NOTE | 2020-06-13 03:10 | ER Document Report ---
ED ENT - General Chief Complaint: Difficulty Swallowing Stated Complaint: DIFFICULTY SWALLOWING Time Seen by Provider: 06/12/20 20:15 Primary Care Provider: JOSE TOMLINSON MD [Primary Care Provider] - Follow up as needed Mode of Arrival: Ambulatory Information source: Legal Guardian Cannot obtain history due to: Mentally challenged TRAVEL OUTSIDE OF THE [place] IN LAST 30 DAYS: No - HPI Notes: This patient is a 65-year-old male with Down syndrome who is brought in by his sister, who is his legal guardian, with complaints of progressive dysphagia and weight loss going on for at least the past 6 months if not longer. The sister varies in her historical report a bit, but after repeated interviews and questioning it appears that the patient has more problems swallowing solids than he does liquids or pured foods. Tough meats, such as an overcooked hamburger, are especially troublesome evidently. He evidently had a very troublesome day today and wound up accidentally spitting out one of his dentures into the toilet and then flushing it. His sister is concerned that he might have some sort of mechanical obstruction that is causing him to have this problem. She reports no fever or chills. She reports no bloody emesis or coffee-ground emesis. He has been evaluated in the hospital recently for syncope and bradycardia. He had a CAT scan of his chest and abdomen at that time. He also had an MRI of the brain. However the neck was not formally imaged. On reading the discharge s missy from that admission it does not seem that swallowing dysfunction played a huge role a few weeks ago. In any case he followed up with his primary care doctor and was referred to gastroenterology but cannot get in until July or August some time. He is otherwise happy and cheerful and is in his usual state of health. He last voided about an hour prior to arrival. He does not have any difficulty handling his own secretions. - Related Data Allergies/Adverse Reactions: ibuprofen Adverse Reaction (Intermediate, Verified 03/09/19 10:18) GI upset Home Medications: sertraline, mobic, reflux meds Past Medical History - General Information source: Relative Cannot obtain history due to: Mentally challenged - Social History Smoking Status: Never Smoker Family History: Reviewed & Not Pertinent - Medical History Notes: Past medical history as documented in the electronic health record is reviewed. - Past Medical History Cardiac Medical History: Reports: Hx Hypercholesterolemia - meds x 6 years, Hx Hypertension - meds x 6 years, Hx Heart Murmur - no SBE prophylaxis recommended on echo report Denies: Hx Atrial Fibrillation, Hx Congestive Heart Failure, Hx Coronary Artery Disease, Hx Heart Attack, Hx Peripheral Vascular Disease Pulmonary Medical History: Denies: Hx Asthma, Hx Bronchitis, Hx COPD, Hx Pneumonia Neurological Medical History: Denies: Hx Cerebrovascular Accident, Hx Seizures, Hx Parkinson's Disease Endocrine Medical History: Denies: Hx Diabetes Mellitus Type 1, Hx Diabetes Mellitus Type 2 Malignancy Medical History: Denies Hx Leukemia GI Medical History: Reports: Hx Gastroesophageal Reflux Disease - meds x 10 years. Denies: Hx Crohn's Disease, Hx Hiatal Hernia, Hx Irritable Bowel, Hx Liver Failure, Hx Pancreatitis, Hx Ulcer Musculoskeletal Medical History: Reports Hx Arthritis, Denies Hx Fibromyalgia, Denies Hx Multiple Sclerosis, Denies Hx Muscular Dystrophy Psychiatric Medical History: Reports: Hx Depression Denies: Hx Bipolar Disorder, Hx Dementia, Hx Post Traumatic Stress Disorder, Hx Schizophrenia Traumatic Medical History: Denies: Hx Fractures Infectious Medical History: Denies: Hx HIV Past Surgical History: Reports: Hx Orthopedic Surgery. Denies: Hx Appendectomy, Hx Bowel Surgery, Hx Cholecystectomy, Hx Colostomy, Hx Coronary Artery Bypass Graft, Hx Gastric Bypass Surgery, Hx Herniorrhaphy, Hx Pacemaker, Hx Tonsillectomy - Immunizations Hx Diphtheria, Pertussis, Tetanus Vaccination: Yes Hx Pneumococcal Vaccination: 07/07/12 Review of Systems - Review of Systems Notes: All other systems reviewed and are negative or noncontributory except as noted in the history of present illness Physical Exam - Vital signs Vitals: Temp Pulse Resp BP Pulse Ox 98.2 F 82 18 110/66 99 06/12/20 19:20 06/12/20 19:20 06/12/20 19:20 06/12/20 19:20 06/12/20 19:20 - Notes Notes: General: This is a well-developed well-nourished and well-hydrated older male with typical Down syndrome facies in no acute distress. Vital signs and nursing documentation are reviewed. HEENT: Mucous membranes are moist. There is no evidence of dehydration. EENT exam is otherwise unremarkable. Neck: Supple, nontender, no masses. Lungs: Clear to auscultation all bustamante. Heart: Regular rate and rhythm without obvious murmur. Abdomen: Scaphoid, soft, nontender, without mass organomegaly. The patient is actually quite ticklish. Extremities: Without clubbing cyanosis edema or deformity. Course - Re-evaluation Re-evalutation: 06/13/20 03:32 Patient rested comfortably throughout his stay. He had no vomiting. He had no difficulty clearing his own secretions. His labs were unremarkable and certainly did not suggest severe dehydration. Nor did they suggest malnutrition. CT of the neck soft tissues was carried out with contrast. This was interpreted by the radiologist as showing no obvious cause for the patient's symptoms. I personally reviewed the images. The imaging results and laboratory results were discussed with the patient and his sister. My recommendation is a follow-up with his primary care provider. I explained that really the only step left to take if they could not correct this problem would be to have a feeding tube placed. Prior to making that decision I think it would be very reasonable if they could be seen by speech pathology to have a formal swallowing assessment done. - Vital Signs Vital signs: Temp Pulse Resp BP Pulse Ox 97.6 F 52 L 18 116/65 99 06/13/20 02:07 06/13/20 02:07 06/12/20 19:20 06/13/20 02:07 06/13/20 02:07 - Laboratory Result Diagrams: 06/12/20 20:40 06/12/20 20:40 Laboratory results interpreted by me: 06/12/20 06/12/20 20:40 20:40 RBC 4.01 L MCH 33.7 H RDW 14.3 H Carbon Dioxide 33 H Glucose 111 H - Diagnostic Test Radiology reviewed: Image reviewed, Reports reviewed Radiology results interpreted by me: 06/13/20 03:[address] 06/12/20 20:21 IMPRESSION: Evaluation for the patient's dysphagia indeterminate based on this exam. Continued clinical follow-up recommended. TECHNICAL DOCUMENTATION: Quality ID # 436: Final reports with documentation of one or more dose reduction techniques (e.g., Automated exposure control, adjustment of the mA and/or kV according to patient size, use of iterative reconstruction technique) copyright 2011 [employer]- All Rights Reserved Discharge - Discharge Clinical Impression: Dysphagia Condition: Good Disposition: HOME, SELF-CARE Instructions: Dysphagia ([facility]) Additional Instructions: Recommend increasing the patient's Protonix (pantoprazole) to 40 mg twice a day for 2 weeks. Contact your primary care provider to discuss a referral to speech pathology. They are expert in evaluating swallowing dysfunction and may be able to shed light on what the problem is. See the mechanical tech as scheduled in July. Return to the emergency department if any concerning symptoms develop. Referrals: JOSE TOMLINSON MD [Primary Care Provider] - Follow up as needed
[2020-06-13 03:30] VITALS: BP 85/68
== END 2020-06-13 03:30 | disposition home or self-care (01) ==
LOC: ER 17:42
DX: R13.10 Dysphagia, unspecified (principal); Q90.9 Down syndrome, unspecified; E78.00 Pure hypercholesterolemia, unspecified; I10 Essential (primary) hypertension
CPT/HCPCS: 36415; 70491; 80053; 85025; 99284